=== PATIENT | male | born 1930 | race Caucasian/White ===

== ENCOUNTER 2018-07-13 17:31 | Inpatient (IN) ==
[2018-07-13] MEDS ORDERED: Bisacodyl 10 MG Supp RECTAL PRN (22:22)
[2018-07-13] MEDS ORDERED: Acetaminophen 325 MG Tablet PO PRN (22:22)
[2018-07-13] MEDS ORDERED: Heparin 10,000 UNITS/10 ML Vial (for IV use) IV.PUSH STA (22:31)
[2018-07-13] MEDS ORDERED: Dextrose 50% in Water 50 ML Vial IV.PUSH PRN (23:12)
--- NOTE | 2018-07-13 23:32 | P.HPIM ---
History of Present Illness Service: [facility] hospitalists . Primary Care Physician: shiva Box Chief Complaint: Shortness of breath History of Present Illness: Mr. Ward is an 87-year-old male with a history of AAA, atrial fibrillation on Xarelto, type 2 diabetes mellitus, hyperlipidemia, hypertension, and peripheral arterial disease who presented to the emergency room in [place] on 07/13/2018 complaining of progressively worsening shortness of breath. He was found to have left lower lobe pulmonary embolism, bilateral pleural effusions and bibasilar consolidation, and right middle lobe and lingula infiltrate on imaging and was transferred to [facility] under the hospitalist service for further evaluation and management. The patient is seen in his hospital room. He is awake, alert, oriented, conversant, and smiling. He states that he has been having problems with shortness of breath over the past month. He received treatment through his primary care physician with oral steroids and an inhaler. He says symptoms improved with the steroids and he never needed the inhaler. However, 2 days ago he began to experience shortness of breath again. He states his symptoms were worse when he attempted to lie down and were relieved initially with the inhaler he had received the previous month. Because of the difficulty he was having breathing during the night, he decided to go to the emergency room today. He also reports having dizziness over the past year for which he attends physical therapy for balance. He states the dizziness was never worked up with any imaging but has resulted in him using a cane for ambulation at times. He denies having any chest pain, shortness of breath, or unilateral weakness. He denies any recent fever or chills. Inpatient Certification: I certify that the inpatient services were ordered in accordance with Medicare regulations governing the order. This includes certification that hospital inpatient services are reasonable and necessary and in the case of services not specified as inpatient-only under 42 CFR 419.22(n), that they are appropriately provided as inpatient services in accordance to with the 2-midnight benchmark under 43 CFR 412.3(e) Estimated Total Length of Stay (Days): 4 Plans for Post Hospital Care: Not yet determined Review of Systems All other systems reviewed negative except as stated in HPI [facility] - History History Provided By: Patient - Medical History Medical History: Medical History (Last Updated 07/14/18 @ 00:38 by JAZMYNE Mckoy) BPH (benign prostatic hyperplasia) Aortic aneurysm, abdominal Atrial fibrillation Diabetes High cholesterol Hypertension Peripheral artery disease - Surgical History Surgical History: Surgical History (Last Updated 07/14/18 @ 00:38 by JAZMYNE Mckoy) Hernia Onset Date: ~2009 History of colon resection Onset Date: ~2016 Hx of appendectomy Onset Date: ~2017 - Family History Family History: Family History (Last Updated 07/14/18 @ 00:36 by JAZMYNE Mckoy) Father CVA (cerebral vascular accident) Brother CVA (cerebral vascular accident) Brother CVA (cerebral vascular accident) - Tobacco History Second Hand Smoke Exposure: No Smoking Status: Never smoker - Alcohol History How Often Do You Have a Drink Containing Alcohol: Monthly or less - Substance Use History Substance History: No History of Abuse Medications and Allergies Active Medications: Active Medications Acetaminophen (Tylenol) 650 mg PO Q4H PRN PRN Reason: Temp > 100.4 Albuterol (Duoneb Neb (Onur)) 1 ampul NEB Q6HR NEB ONUR Albuterol (Duoneb Neb (Prn)) 1 ampul NEB Q4HR NEB PRN PRN Reason: SHORTNESS OF BREATH/WHEEZING Bisacodyl (Dulcolax Supp) 10 mg RECTAL DAILY PRN PRN Reason: SEVERE CONSITIPATION Dextrose (D50w Vial) 50 ml IV.PUSH UNSCH PRN PRN Reason: PER HYPOGLYCEMIA PROTOCOL Furosemide (Lasix Inj) 40 mg IV.PUSH BID@0900,1800 ONUR Glucagon (Glucagon Inj) 1 mg OTHER PRN PRN PRN Reason: for Hypoglycemia Protocol Heparin Sodium/Dextrose (Heparin/D5w 25,000 U/250 Ml) 25,000 unit in 250 mls @ 12 mls/hr IV.CONT TITRATE PRN; Protocol PRN Reason: Per Protocol Azithromycin 500 mg/ Sodium (Chloride) 250 mls @ 250 mls/hr IV.SIG Q24H ONUR Ceftriaxone Sodium 1,000 mg/ (Sodium Chloride) 100 mls @ 200 mls/hr IV.SIG Q24H ONUR Insulin Aspart (Novolog Insulin Correctional Sugar Inj) 0 unit SQ ACHS ONUR; Protocol Sennosides (Senokot) 17.2 mg PO Q12H PRN PRN Reason: Moderate Constipation Sodium Chloride (Ns Flush) 2 ml IV.FLUSH BID ONUR Sodium Chloride (Ns Flush) 2 ml IV.FLUSH PRN PRN PRN Reason: FLUSH AFTER USING IV ACCESS Allergies Allergy/AdvReac Type Severity Reaction Status Date / Time No Known Allergies Allergy Verified 07/13/18 17:45 Home Medications Medication Instructions Recorded Confirmed Type albuterol sulfate [Ventolin HFA] 2 puff INHALATION Q4-6H PRN 07/13/18 07/13/18 History atenolol [Tenormin] 25 mg PO DAILY 07/13/18 07/13/18 History furosemide [Lasix] 20 mg PO DAILY 07/13/18 07/13/18 History glyburide 2.5 mg PO DAILY 07/13/18 07/13/18 History levothyroxine 50 mcg PO DAILY 07/13/18 07/13/18 History losartan 50 mg PO DAILY 07/13/18 07/13/18 History metformin [Glucophage] 500 mg PO BID 07/13/18 07/13/18 History potassium chloride 10 meq PO BID 07/13/18 07/13/18 History rivaroxaban [Xarelto] 15 mg PO DAILY 07/13/18 07/13/18 History simvastatin 20 mg PO QPM 07/13/18 07/13/18 History tamsulosin [Flomax] 0.4 mg PO DAILY 07/13/18 07/13/18 History Exam Vital signs: Intake & Output 07/13/18 07/13/18 07/14/18 06:59 18:59 06:59 Weight 63.8 kg Other: Weight On Admission 63.8 kg Narrative: GENERAL: This is a well-nourished, well-developed elderly male patient, in no apparent distress. Lying in bed smiling; very pleasant. SKIN: No rashes. Cool and dry. Multiple areas of ecchymosis on upper extremities in various stages of healing. Skin changes LE r/t PVD. HEAD: Atraumatic. Normocephalic. EYES: No scleral icterus. No injection or drainage. ENT: Nose without bleeding, purulent drainage. NECK: Trachea midline. No JVD. No carotid bruits. CARDIOVASCULAR: Irregularly irregular without murmurs or rubs. Left > right LE + 1 pitting edema. RESPIRATORY: Breath sounds diminished at bases but equal bilaterally. No wheezes , rales, or rhonchi. GASTROINTESTINAL: Abdomen soft, non-tender, nondistended. No guarding. MUSCULOSKELETAL: Extremities without clubbing, cyanosis. NEUROLOGICAL: Awake and alert. Motor and sensory grossly within normal limits. Normal speech. . Results - Labs CBC & Chem 7: 07/14/18 00:21 Caprini VTE Risk Assessment Caprini VTE Risk Assessment: Moderate/High Risk (score >= 2) Caprini Risk Assessment Model: Point Value = 1 Point Value = 2 Point Value = 3 Point Value = 5 Age 41-60 Minor surgery BMI > 25 kg/m2 Swollen legs Varicose veins or History of unexplained or recurrent spontaneous Oral contraceptives or hormone replacement Sepsis (< 1 month) Serious lung disease, including pneumonia (< 1 month) Abnormal pulmonary function Acute myocardial infarction Congestive heart failure (< 1 month) History of inflammatory bowel disease Medical patient at bed rest Age 61-74 Arthroscopic surgery Major open surgery (> 45 min) Laparoscopic surgery (> 45 min) Malignancy Confined to bed (> 72 hours) Immobilizing plaster cast Central venous access Age >= 75 History of VTE Family history of VTE Factor V Leiden Prothrombin [id number] Lupus anticoagulant Anticardiolipin antibodies Elevated serum homocysteine Heparin-induced thrombocytopenia Other congenital or acquired thrombophilia Stroke (< 1 month) Elective arthroplasty Hip, pelvis, or leg fracture Acute spinal cord injury (< 1 month) Prophylaxis Regimen: Total Risk Factor Score Risk Level Prophylaxis Regimen 0-1 Low Early ambulation 2 Moderate Order ONE of the following: *Sequential Compression Device (SCD) *Heparin 5000 units SQ BID 3-4 Higher Order ONE of the following medications: *Heparin 5000 units SQ TID *Enoxaparin/Lovenox 40 mg SQ daily (WT < 150 kg, CrCl > 30 mL/min) *Enoxaparin/Lovenox 30 mg SQ daily (WT < 150 kg, CrCl > 10-29 mL/min) *Enoxaparin/Lovenox 30 mg SQ BID (WT < 150 kg, CrCl > 30 mL/min) AND/OR *Sequential Compression Device (SCD) 5 or more Highest Order ONE of the following medications: *Heparin 5000 units SQ TID (Preferred with Epidurals) *Enoxaparin/Lovenox 40 mg SQ daily (WT < 150 kg, CrCl > 30 mL/min) *Enoxaparin/Lovenox 30 mg SQ daily (WT < 150 kg, CrCl > 10-29 mL/min) *Enoxaparin/Lovenox 30 mg SQ BID (WT < 150 kg, CrCl > 30 mL/min) AND *Sequential Compression Device (SCD) Assessment and Plan - Plan Mr. Ward is an 87-year-old male with a history of AAA, atrial fibrillation on Xarelto, type 2 diabetes mellitus, hyperlipidemia, hypertension, and peripheral arterial disease who presented to the emergency room in [place] on 07/13/2018 complaining of progressively worsening shortness of breath. He was found to have left lower lobe pulmonary embolism, bilateral pleural effusions and bibasilar consolidation, and right middle lobe and lingula infiltrate on imaging and was transferred to [facility] under the hospitalist service for further evaluation and management. Pulmonary embolism, left lower lobe -Chest CTA performed in [place] showed pulmonary embolus within the left lower lobe artery branches -Heparin drip -Consider hematology consultation for assistance with anticoagulation selection as patient was on Xarelto for atrial fibrillation -Bilateral LE doppler us to evaluate for DVT (left > right LE edema) Congestive heart failure -Bilateral pleural effusions noted on chest CTA -BNP 2890 -Check 2D echocardiogram to evaluate cardiac function and structure -Lasix 40 mg IV twice daily; hold home Lasix dose for now -Recommend fluid restriction once diet restarted -Monitor intake and output every shift Troponin I elevation -Suspect secondary to CHF -will trend cardiac enzymes and EKGs to rule out ACS -N.p.o. for now -Consult cardiology -appreciate assistance -Continuous cardiac telemetry to monitor for arrhythmia Pneumonia, right middle lobe and lingula -Chest CT shows atelectasis versus infiltrate right middle lobe and lingula -Patient is afebrile and white blood count is not elevated; however, will treat empirically for now -Antibiotics: IV ceftriaxone and azithromycin -Duo nebulizers every 6 hours scheduled and every 4 hours as needed shortness of breath/wheezing -Supplemental oxygen via nasal cannula as needed to maintain oxygen saturation greater than 92% Dizziness, chronic 1 year -Patient may benefit from brain MRI/neurological evaluation as an outpatient Type 2 Diabetes Mellitus -Hold metformin pending possible contrast studies, hold home glyburide while n.p.o. - Accu-Cheks before meals and at bedtime with low-dose NovoLog sliding scale coverage - Hypoglycemia protocol - Monitor trends and blood glucose readings and adjust treatments as indicated Hypothyroidism -Resume home Synthroid Hypertension -Resume home losartan and atenolol Hyperlipidemia -Resume home simvastatin BPH -Resume home Flomax DVT prophylaxis -On heparin drip for now Discussed Condition With: Dr. Benites, RN, and patient H&P: Quality - VTE Deep Vein Thrombosis/Pulmonary Embolism Present on Admission: Yes
[2018-07-13] MEDS: Azithromycin Inj 500 MG in Sodium Chlor 0.9% Inj 250 ML IV.SIG SCH (23:33)
[2018-07-13] MEDS: Heparin Drip 25,000 UNIT/250 ML BAG IV.CONT PRN (23:34)
[2018-07-14 00:31] LABS: Hematocrit 36.8 % (39.0-51.0); Mean Corpuscular HGB Conc 32.6 % (32.0-36.0); Mean Corpuscular Hemoglobin 29.5 pg (27.0-34.0); Mean Corpuscular Volume 90.6 fL (80.0-100.0); Mean Platelet Volume 10.2 fL (7.0-11.0); Platelet Count 116 th/mm3 (150-450); Red Blood Count 4.06 mil/mm3 (4.50-5.90); Red Cell Distribution Width 16.6 % (11.6-17.2); White Blood Count 7.7 th/mm3 (4.0-11.0)
[2018-07-14 00:41] LABS: Activated Partial Thrombo Time 31.7 sec (24.3-30.1); INR 1.2 Ratio; Prothrombin Time 12.5 sec (9.8-11.6)
[2018-07-14 00:57] LABS: Troponin I 0.32 ng/mL (0.02-0.05)
[2018-07-14 04:57] LABS: Baso % (Auto) 0.2 % (0.0-2.0); Eos % (Auto) 0.1 % (0.0-4.0); Hematocrit 35.3 % (39.0-51.0); Hemoglobin 11.8 gm/dL (13.0-17.0); Lymph # (Auto) 0.7 th/mm3 (1.0-4.8); Lymph % (Auto) 8.8 % (9.0-44.0); Mean Corpuscular HGB Conc 33.4 % (32.0-36.0); Mean Corpuscular Hemoglobin 30.1 pg (27.0-34.0); Mean Corpuscular Volume 90.1 fL (80.0-100.0); Mono # (Auto) 0.7 th/mm3 (0.0-0.9); Mono % (Auto) 8.6 % (0.0-8.0); Neut # (Auto) 6.3 th/mm3 (1.8-7.7); Neut % (Auto) 82.3 % (16.0-70.0); Platelet Count 119 th/mm3 (150-450); Red Blood Count 3.91 mil/mm3 (4.50-5.90); Red Cell Distribution Width 16.4 % (11.6-17.2); White Blood Count 7.7 th/mm3 (4.0-11.0)
[2018-07-14 05:33] LABS: Alanine Aminotransferase 38 U/L (12-78); Albumin 3.5 g/dL (3.4-5.0); Anion Gap 9 meq/L (5-15); Aspartate Aminotransferase 27 U/L (15-37); Blood Urea Nitrogen 37 mg/dL (7-18); Calcium 8.9 mg/dL (8.5-10.1); Carbon Dioxide 30.1 meq/L (21.0-32.0); Chloride 105 meq/L (98-107); Glomerular Filtration Rate 50 mL/min (>89); Glucose,Random 138 mg/dL (74-106); Potassium 3.4 meq/L (3.5-5.1); Sodium 144 meq/L (136-145)
[2018-07-14 05:37] LABS: Alkaline Phosphatase 70 U/L (45-117); Total Protein 7.1 g/dL (6.4-8.2); Troponin I 0.32 ng/mL (0.02-0.05)
[2018-07-14 05:47] LABS: Creatine Kinase 42 U/L (39-308)
[2018-07-14] MEDS: Levothyroxine 50 MCG Tablet PO SCH (06:19)
--- NOTE | 2018-07-14 09:19 | US ---
EXAM DATE: 07/14/2018 9:10 AM EDT AGE/SEX: 87 years / Male INDICATIONS: Bilateral leg swelling. CLINICAL DATA: This is the patient's initial encounter. Patient reports that signs and symptoms have been present for 4 - 6 days and indicates a pain score of 4/10. MEDICAL/SURGICAL HISTORY: Aneurysm, abdominal. Hypercholesterolemia. Afib. BPH. Diabetes. HTN. Peripheral artery disease. Anticoagulant therapy, Heparin. Appendectomy. Bilateral inguinal hernia repair. Colon resection. COMPARISON: No prior exams available for comparison. TECHNIQUE: Venous ultrasound of both lower extremities was performed from the inguinal ligament to t he proximal calf. Real-time, color Doppler and spectral tracing, compression and augmentation techni ques were used. FINDINGS: Right Leg: Normal compression of the deep venous system from the inguinal region to the proximal donald f. No echogenic clot is seen. Normal response of the venous system to augmentation and respiration. Left Leg: Normal compression of the deep venous system from the inguinal region to the proximal calf . No echogenic clot is seen. Normal response of the venous system to augmentation and respiration. Other: 3 cm popliteal cyst on the left. CONCLUSION: 1. Negative for deep venous thrombosis 2. 3 cm popliteal cyst the left. Electronically signed by: Jonathan Peace MD 07/14/2018 9:17 AM EDT
[2018-07-14] MEDS: Atenolol 25 MG Tablet PO SCH (10:14)
[2018-07-14] MEDS: Insulin NovoLOG Aspart Correctional Sugar Inj SQ SCH ×4 (10:14→21:26)
--- NOTE | 2018-07-14 11:59 | P.PN ---
Subjective Interval history: Deterioration since last night. Patient himself reports no chest pain, reports mild dyspnea. Says he lives alone, says his daughter checks on him semiweekly. Renal function seems to worsen today, on IV diuresis. Physical Exam Vital signs: Vital Signs 07/13/18 23:00 07/14/18 00:00 07/14/18 01:00 Temperature 98 F Pulse Rate 91 H 88 70 Respiratory Rate 16 Blood Pressure 164/97 H Pulse Oximetry 97 07/14/18 02:00 07/14/18 03:00 07/14/18 03:09 Temperature Pulse Rate 76 86 90 Respiratory Rate 16 Blood Pressure 158/88 H Pulse Oximetry 95 07/14/18 03:56 07/14/18 04:00 07/14/18 05:00 Temperature Pulse Rate 83 78 86 Respiratory Rate 20 Blood Pressure Pulse Oximetry 93 L 07/14/18 06:00 07/14/18 07:00 07/14/18 08:00 Temperature 97.8 F Pulse Rate 94 H 72 67 Respiratory Rate 16 Blood Pressure 94/57 L Pulse Oximetry 94 L 07/14/18 09:18 07/14/18 10:16 07/14/18 11:35 Temperature 97.4 F L Pulse Rate 77 74 Respiratory Rate 18 16 Blood Pressure 173/98 H Pulse Oximetry 96 97 Intake & Output 07/13/18 07/14/18 07/14/18 18:59 06:59 18:59 Intake Total 350 / 350 Output Total 300 / 300 Balance 50 / 50 Weight 63.8 kg Intake: IV 350 / 350 Azithromycin Inj 500 MG In NS 250 / 250 Inj 250 ML @ 250 mls/hr IV.SIG Q24H RITO Rx#:[id number] Rocephin Inj 1,000 MG In NS Inj 100 / 100 100 ML @ 200 mls/hr IV.SIG Q24H RITO Rx#:[id number] Output: Urine 300 / 300 Other: Date of Last Bowel Movement 07/11/18 Weight On Admission 63.8 kg Narrative: Heart sounds regular rate rhythm, no murmurs Clear lungs bilaterally, unlabored breathing Mild to moderate bilateral lower extremity edema Results - Labs CBC & Chem 7: 07/14/18 04:46 07/14/18 04:46 Laboratory Results - last 24 hr 07/14/18 07/14/18 07/14/18 00:21 00:21 00:21 WBC 7.7 RBC 4.06 L Hgb 12.0 L Hct 36.8 L MCV 90.6 MCH 29.5 MCHC 32.6 RDW 16.6 Plt Count 116 L MPV 10.2 Neut % (Auto) Lymph % (Auto) Hickman % (Auto) Eos % (Auto) Baso % (Auto) Neut # (Auto) Lymph # (Auto) Hickman # (Auto) Eos # (Auto) Baso # (Auto) WBC Differential Differential Comment PT 12.5 H INR 1.2 APTT 31.7 H Sodium Potassium Chloride Carbon Dioxide Anion Gap BUN Creatinine Estimated GFR POC Glucose Random Glucose Calcium Total Bilirubin AST ALT Alkaline Phosphatase Total Creatine Kinase 50 Troponin I 0.32 H Total Protein Albumin 07/14/18 07/14/18 07/14/18 04:46 04:46 04:46 WBC 7.7 RBC 3.91 L Hgb 11.8 L Hct 35.3 L MCV 90.1 MCH 30.1 MCHC 33.4 RDW 16.4 Plt Count 119 L MPV 10.0 Neut % (Auto) 82.3 H Lymph % (Auto) 8.8 L Hickman % (Auto) 8.6 H Eos % (Auto) 0.1 Baso % (Auto) 0.2 Neut # (Auto) 6.3 Lymph # (Auto) 0.7 L Hickman # (Auto) 0.7 Eos # (Auto) 0.0 Baso # (Auto) 0.0 WBC Differential . Differential Comment Auto diff final PT INR APTT 53.3 H D Sodium 144 Potassium 3.4 L Chloride 105 Carbon Dioxide 30.1 Anion Gap 9 BUN 37 H Creatinine 1.36 H Estimated GFR 50 L POC Glucose Random Glucose 138 H Calcium 8.9 Total Bilirubin 0.9 AST 27 ALT 38 Alkaline Phosphatase 70 Total Creatine Kinase 42 Troponin I 0.32 H Total Protein 7.1 Albumin 3.5 07/14/18 07/14/18 07:53 11:41 WBC RBC Hgb Hct MCV MCH MCHC RDW Plt Count MPV Neut % (Auto) Lymph % (Auto) Hickman % (Auto) Eos % (Auto) Baso % (Auto) Neut # (Auto) Lymph # (Auto) Hickman # (Auto) Eos # (Auto) Baso # (Auto) WBC Differential Differential Comment PT INR APTT Sodium Potassium Chloride Carbon Dioxide Anion Gap BUN Creatinine Estimated GFR POC Glucose 135 H 162 H Random Glucose Calcium Total Bilirubin AST ALT Alkaline Phosphatase Total Creatine Kinase Troponin I Total Protein Albumin - Imaging Impressions Venous Doppler Study 07/14/18 00:00 CONCLUSION: 1. Negative for deep venous thrombosis 2. 3 cm popliteal cyst the left. Assessment and Plan - Plan Mr. Ward is an 87-year-old male with a history of AAA, atrial fibrillation on Xarelto, type 2 diabetes mellitus, hyperlipidemia, hypertension, and peripheral arterial disease who presented to the emergency room in [place] on 07/13/2018 complaining of progressively worsening shortness of breath. He was found to have left lower lobe pulmonary embolism, bilateral pleural effusions and bibasilar consolidation, and right middle lobe and lingula infiltrate on imaging and was transferred to [facility] under the hospitalist service for further evaluation and management. Pulmonary embolism, left lower lobe -Heparin drip -Negative lower extremity ultrasound Bilateral pleural effusions Likely from congestive heart failure given bilateral nature, unable to drain due to being on anticoagulation unfortunately, likely will remain as residual since the patient is already on Lasix Troponin I elevation -PE vs CHF vs possible ACS, cards consulted Congestive heart failure -echo pending -Lasix 40 mg IV twice daily; hold home Lasix dose for now -Recommend fluid restriction once diet restarted possible PNA -Antibiotics: IV ceftriaxone and azithromycin, if procalcitonin negative will dc abx Dizziness, chronic 1 year -Patient may benefit from brain MRI/neurological evaluation as an outpatient Type 2 Diabetes Mellitus - Accu-Cheks before meals and at bedtime with low-dose NovoLog sliding scale coverage Hypothyroidism - home Synthroid Hypertension -home losartan and atenolol Hyperlipidemia -home simvastatin BPH - home Flomax DVT prophylaxis -On heparin drip for now
--- NOTE | 2018-07-14 12:16 | ECG ---
Date Performed: 07/14/2018 Time Performed: 01:43:24 PTAGE: 87 years EKG: Atrial fibrillation with PVC(s) Prolonged QT interval LVH with secondary repolarization abn ormality Extensive ST-T changes may be due to hypertrophy and/or ischemia Low QRS voltages in limb le ads OCCASIONAL PVCS PRESENT Abnormal ECG PREVIOUS TRACING 07/13/2018 @18.17.23 DOCTOR: William Beatty Interpretating Date/Time 07/14/2018 12:15:53
--- NOTE | 2018-07-14 12:22 | ECG ---
Date Performed: 07/14/2018 Time Performed: 06:53:34 PTAGE: 87 years EKG: Atrial fibrillation with PVC(s) or aberrant ventricular conduction Prolonged QT interval Po ssible anterior infarct - age undetermined Inferior/lateral ST-T changes may be due to myocardial isc hemia Abnormal ECG PREVIOUS TRACING : 07/14/2018 01.43 Since the previous tracing, no significant change noted ex cept for anterolateral ischemic changed are more prominent DOCTOR: William Beatty Interpretating Date/Time 07/14/2018 12:21:02
[2018-07-14] MEDS: Heparin Drip 25,000 UNIT/250 ML BAG IV.CONT PRN (19:07)
--- NOTE | 2018-07-14 20:00 | MB ---
cc: Neno Latham DO DATE: 07/14/2018 REASON FOR CONSULTATION: Shortness of breath, congestive heart failure. HISTORY OF PRESENT ILLNESS: Maximus Ward is a pleasant 87-year-old male who presented to [facility] Emergency Room in [place] due to shortness of breath. 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 He has noted that he has had progressive shortness of breath over the past few days. Shortness of breath started around 1 month ago and he has been receiving treatments through his primary care physician with oral steroids and an inhaler. His symptoms seemed to improve somewhat on these. He noticed that over the past 2 days that the shortness of breath has gotten extensively worse. He notes that it is worse at night when he lays down and was initially relieved with the inhaler, but yesterday did not seem to get relieved, and so he came into the emergency room. While there, he underwent a CT which showed a left lower lobe pulmonary embolism as well as bilateral pleural effusions. Because of this, he was transferred to [facility] for further evaluation. He denies any chest pain with the episodes. PAST MEDICAL HISTORY: 1. Atrial fibrillation. 2. Benign prostatic hypertrophy. 3. Abdominal aortic aneurysm. 4. Diabetes. 5. Hyperlipidemia. 6. Hypertension. 7. Peripheral artery disease. PAST SURGICAL HISTORY: 1. Hernia surgery (2009). 2. History of colon resection (2017). 3. History of appendectomy (2017). ALLERGIES: NO KNOWN DRUG ALLERGIES. MEDICATIONS: 1. Potassium 10 mEq b.i.d. 2. Flomax 0.4 mg daily. 3. Metformin 500 mg b.i.d. 4. Lasix 20 mg daily. 5. Synthroid 50 mcg daily. 6. Xarelto 15 mg daily. 7. Glyburide 2.5 mg daily. 8. Atenolol 25 mg daily. 9. Albuterol 2 puffs every 4-6 hours as needed. 10. Losartan 50 mg daily. 11. Zocor 20 mg every night. FAMILY HISTORY: Denies premature coronary artery disease or sudden cardiac within the family. SOCIAL HISTORY: The patient denies tobacco, alcohol or drug abuse. REVIEW OF SYSTEMS: Fourteen systems were reviewed including osteopathic. Pertinent positives and negatives above, otherwise negative. PHYSICAL EXAMINATION: VITAL SIGNS: Temperature 97.4, heart rate 74, blood pressure 170/90, respirations 16, pulse oximetry 97% on room air. GENERAL: The patient appears well, in no acute distress, alert, awake and oriented x3. HEENT: Extraocular muscles intact. Mucous membranes moist. NECK: Supple. No JVD at 45 degrees. No carotid bruits heard bilaterally. Carotid upstroke is brisk in nature. HEART: Regular rate and rhythm. Positive first and second heart sounds with a 1/6 crescendo decrescendo murmur to the right sternal border. LUNGS: Decreased breath sounds bilaterally, but no overt wheezes, rales or rhonchi. ABDOMEN: Soft, nontender, nondistended. No organomegaly noted. EXTREMITIES: Show no clubbing, cyanosis or edema. Femoral and distal pulses intact bilaterally. NEUROLOGIC: No focal deficits. SKIN: Warm, dry and intact. OSTEOPATHIC: No kyphoscoliosis, lordosis or paraspinal tender points. LABORATORY DATA: Hemoglobin 12.0, hematocrit 36.8, platelets 116. Potassium 3.4, BUN 37, creatinine 1.36, troponin 0.32. Electrocardiogram (07/14/2018 at 0143): Atrial fibrillation with PVCs versus aberrantly conducted beats, LVH with secondary ST-T wave changes. IMPRESSION: 1. Elevated troponin. 2. Bilateral pleural effusions. 3. Acute heart failure, unsure if diastolic versus systolic at this time. 4. Pulmonary embolus within the left lower lobe. 5. Atrial fibrillation with controlled ventricular response, currently on Xarelto for anticoagulation. 6. Elevated troponin. 7. Hypertension. 8. Hyperlipidemia. RECOMMENDATIONS: 1. Mr. Ward presented with shortness of breath, which may be due to acute congestive heart failure with bilateral pleural effusions as well as his left lower lobe pulmonary embolus. 2. I agree with hematology evaluating him due to a pulmonary embolus while on anticoagulation with Xarelto. 3. He does have a minimally elevated troponin, but this is relatively flat and is most likely secondary to his pulmonary embolus as well as his current congestive heart failure. 4. We will check a 2D echo to look at his overall left ventricular function, cardiac structure and possible valvulopathies. 5. Mr. Ward states that he had a stress test some time in the last year, which he was told was normal. 6. We will continue to diurese him as possible for his bilateral pleural effusions and congestive heart failure. 7. For now, he will continue on his atenolol, but if significant cardiomyopathy is noted, this should be changed to possibly carvedilol versus metoprolol succinate. 8. He will also continue on his losartan, but if creatinine continues to elevate, this will be stopped while being diuresed. 9. His atrial fibrillation is controlled at this time. 10. Further recommendations will be made based on the hospital course. Thank you for allowing me to see Maximus Ward. If there are any questions, please do not hesitate to call. Neno Latham, DO VIDAL/brandi/rl , 03:27 PM , 03:39 PM
[2018-07-14] MEDS: Azithromycin Inj 500 MG in Sodium Chlor 0.9% Inj 250 ML IV.SIG SCH (23:26)
[2018-07-15] MEDS: Levothyroxine 50 MCG Tablet PO SCH (05:24)
[2018-07-15 06:44] LABS: Hematocrit 35.5 % (39.0-51.0); Hemoglobin 11.6 gm/dL (13.0-17.0); Mean Corpuscular HGB Conc 32.8 % (32.0-36.0); Mean Corpuscular Hemoglobin 29.7 pg (27.0-34.0); Mean Corpuscular Volume 90.5 fL (80.0-100.0); Mean Platelet Volume 10.9 fL (7.0-11.0); Platelet Count 115 th/mm3 (150-450); Red Blood Count 3.92 mil/mm3 (4.50-5.90); Red Cell Distribution Width 16.3 % (11.6-17.2); White Blood Count 11.2 th/mm3 (4.0-11.0)
[2018-07-15 07:34] LABS: Calcium 9.2 mg/dL (8.5-10.1); Potassium 3.2 meq/L (3.5-5.1)
[2018-07-15] MEDS: Atenolol 25 MG Tablet PO SCH (08:14)
[2018-07-15] MEDS: Insulin NovoLOG Aspart Correctional Sugar Inj SQ SCH ×4 (08:17→21:11)
--- NOTE | 2018-07-15 14:00 | P.PN ---
Subjective Interval history: Nursing denies any deterioration since last night. Patient himself has no chest pain no shortness of breath today. Says he is pretty compliant with his Xarelto at home for his A. fib. Physical Exam Vital signs: Vital Signs 07/14/18 14:00 07/14/18 15:00 07/14/18 15:38 Temperature 97.4 F L Pulse Rate 72 77 72 Respiratory Rate 18 Blood Pressure 176/97 H Pulse Oximetry 97 07/14/18 15:59 07/14/18 16:00 07/14/18 17:00 Temperature Pulse Rate 69 64 90 Respiratory Rate 17 Blood Pressure Pulse Oximetry 07/14/18 18:00 07/14/18 19:00 07/14/18 20:00 Temperature 97 F L Pulse Rate 74 80 84 Respiratory Rate 18 Blood Pressure 160/84 H Pulse Oximetry 99 07/14/18 20:33 07/14/18 20:34 07/14/18 21:00 Temperature Pulse Rate 75 72 Respiratory Rate 18 Blood Pressure Pulse Oximetry 92 L 07/14/18 22:00 07/14/18 23:00 07/15/18 00:00 Temperature Pulse Rate 82 76 80 Respiratory Rate 16 Blood Pressure 156/88 H Pulse Oximetry 97 07/15/18 01:00 07/15/18 02:00 07/15/18 03:00 Temperature Pulse Rate 84 84 89 Respiratory Rate Blood Pressure Pulse Oximetry 07/15/18 04:00 07/15/18 04:09 07/15/18 05:00 Temperature Pulse Rate 90 72 108 H Respiratory Rate 16 16 Blood Pressure 160/89 H Pulse Oximetry 93 L 07/15/18 06:00 07/15/18 07:00 07/15/18 08:00 Temperature 98.3 F Pulse Rate 102 H 106 H 92 H Respiratory Rate 18 Blood Pressure 152/99 H Pulse Oximetry 96 07/15/18 09:00 07/15/18 09:10 07/15/18 10:00 Temperature Pulse Rate 90 91 H 90 Respiratory Rate 18 Blood Pressure Pulse Oximetry 96 07/15/18 11:00 07/15/18 12:00 Temperature 98.0 F Pulse Rate 88 103 H Respiratory Rate 18 Blood Pressure 154/97 H Pulse Oximetry 94 L Intake & Output 09/23/18 09/24/18 09/24/18 18:59 06:59 18:59 Intake Total 1100 / 1100 840 / 840 Output Total 350 / 350 Balance 1100 / 1100 490 / 490 Weight 64.2 kg Intake: IV 600 / 600 Heparin/D5W 25,000 U/250 mL 25, 250 / 250 000 unit In 250 ml @ 1,200 UNITS/HR 12 mls/hr IV.CONT TITRATE PRN Rx#:[id number] Azithromycin Inj 500 MG In NS 250 / 250 Inj 250 ML @ 250 mls/hr IV.SIG Q24H RITO Rx#:[id number] Rocephin Inj 1,000 MG In NS Inj 100 / 100 100 ML @ 200 mls/hr IV.SIG Q24H RITO Rx#:[id number] Oral 1100 / 1100 240 / 240 Output: Urine 350 / 350 Other: # Incontinent Voids 5 Date of Last Bowel Movement 07/14/18 07/14/18 07/14/18 # Bowel Movements 2 0 Narrative: Clear lungs bilaterally anteriorly, unlabored breathing Currently getting echocardiogram as we speak Heart sounds regular rate rhythm Results - Labs CBC & Chem 7: 07/15/18 05:38 07/15/18 05:38 Laboratory Results - last 24 hr 07/14/18 07/14/18 07/14/18 12:24 12:24 18:02 WBC RBC Hgb Hct MCV MCH MCHC RDW Plt Count MPV APTT 59.7 H Sodium Potassium Chloride Carbon Dioxide Anion Gap BUN Creatinine Estimated GFR POC Glucose 202 H Random Glucose Calcium Procalcitonin 0.12 H 07/14/18 07/15/18 07/15/18 20:47 05:38 05:38 WBC 11.2 H RBC 3.92 L Hgb 11.6 L Hct 35.5 L MCV 90.5 MCH 29.7 MCHC 32.8 RDW 16.3 Plt Count 115 L MPV 10.9 APTT Sodium 142 Potassium 3.2 L Chloride 103 Carbon Dioxide 28.0 Anion Gap 11 BUN 49 H Creatinine 1.85 H Estimated GFR 35 L POC Glucose 196 H Random Glucose 178 H Calcium 9.2 Procalcitonin 07/15/18 07/15/18 07/15/18 05:38 08:11 11:13 WBC RBC Hgb Hct MCV MCH MCHC RDW Plt Count MPV APTT 65.9 H Sodium Potassium Chloride Carbon Dioxide Anion Gap BUN Creatinine Estimated GFR POC Glucose 216 H 207 H Random Glucose Calcium Procalcitonin Microbiology 07/14/18 15:40 Stool Stool Occult Blood (LIZ) - Final Hemoccult negative Assessment and Plan - Plan Mr. Ward is an 87-year-old male with a history of AAA, atrial fibrillation on Xarelto, type 2 diabetes mellitus, hyperlipidemia, hypertension, and peripheral arterial disease who presented to the emergency room in [place] on 07/13/2018 complaining of progressively worsening shortness of breath. He was found to have left lower lobe pulmonary embolism, bilateral pleural effusions and bibasilar consolidation, and right middle lobe and lingula infiltrate on imaging and was transferred to [facility] under the hospitalist service for further evaluation and management. Pulmonary embolism, left lower lobe -Heparin drip -Negative lower extremity ultrasound -Hematology consult pending given embolism while on Xarelto regimen Bilateral pleural effusions Likely from congestive heart failure given bilateral nature, unable to drain due to being on anticoagulation unfortunately, likely will remain as residual since the patient is already on Lasix JOSE Likely secondary to diuresis and heart failure, continue with IV Lasix, if worsening tomorrow then hold Lasix - hold home losartan Troponin I elevation -cards suspect hrt strain from CHF and PE possible PNA -Continue Rocephin and azithromycin, pro calcitonin is elevated Dizziness, chronic 1 year -Patient may benefit from brain MRI/neurological evaluation as an outpatient Type 2 Diabetes Mellitus - Accu-Cheks before meals and at bedtime with low-dose NovoLog sliding scale coverage Hypothyroidism - home Synthroid Hypertension -home losartan and atenolol Hyperlipidemia -home simvastatin BPH - home Flomax DVT prophylaxis -On heparin drip for now Discharge Planning: SNF likely
--- NOTE | 2018-07-15 14:19 | ECHRPT ---
Indication: HEART FAILURE CONCLUSIONS The left ventricular systolic function is severely reduced with an estimated ejection fraction in th e range of 25-30%. Normal LV size and wall thickness. Global hypokinesis with abnormal septal wall motion abnormality secondary to atrial fibrillation. The right ventricular systoilc function is moderately decreased. The left atrial size is vzibtged-na-gyqthtbr dilated. Moderate mitral annular calcification. Vtthohob-qh-jznpwp mitral valve regurgitation. Aortic valve is heavily calcified with some restricted leaflet opening. Mild Aortic stenosis (dimens ionless index 0.55). Yjtl-nj-vkpxlzjk aortic valve regurgitation. There is moderate tricuspid regurgitation. The estimated pulmonary arterial pressure is 62 mmHg. IVC is normal size with >50% collapse with inspiration. A large left sided pleural effusion is noted. No prior echo for comparision. Overall, technically difficult study. BP: / HR: 92 Rhythm: atrial fibrillation MEASUREMENTS (Male / Female) Normal Values Technical Quality:poor 2D ECHO LV Diastolic Diameter PLAX 4.8 cm 4.2 - 5.9 / 3.9 - 5.3 cm LV Systolic Diameter PLAX 4.3 cm IVS Diastolic Thickness 1.1 cm 0.6 - 1.0 / 0.6 - 0.9 cm LVPW Diastolic Thickness 2.8 cm 0.6 - 1.0 / 0.6 - 0.9 cm LV Relative Wall Thickness 0.8 RV Internal Dim ED PLAX 3.1 cm LVOT Diameter 1.6 cm Aortic Root Diameter 3.5 cm LA Systolic Diameter LX 4.1 cm 3.0 - 4.0 / 2.7 - 3.8 cm LV Ejection Fraction MOD 4C 33.3 % LV Ejection Fraction 4C AL 33.5 % M-MODE Aortic Root Diameter MM 4.0 cm LA Systolic Diameter MM 5.0 cm LA Ao Ratio MM 1.3 AV Cusp Separation MM 1.3 cm DOPPLER AV Peak Velocity 160.3 cm/s AV Peak Gradient 10.3 mmHg AV Mean Gradient 4.5 mmHg AV Velocity Time Integral 22.9 cm AI Peak Velocity 200.0 cm/s AI Peak Gradient 16.0 mmHg AI Pressure Half Time 95.0 ms LVOT Peak Velocity 81.2 cm/s LVOT Peak Gradient 2.6 mmHg AV Area Cont Eq pk 1.0 cm Mitral E Point Velocity 98.2 cm/s LV E' Lateral Velocity 6.2 cm/s Mitral E to LV E' Lateral Ratio 15.7 LV E' Septal Velocity 5.8 cm/s Mitral E to LV E' Septal Ratio 17.1 TR Peak Velocity 362.0 cm/s TR Peak Gradient 52.4 mmHg Right Atrial Pressure 10.0 mmHg Pulmonary Artery Systolic Pressu 62.4 mmHg Right Ventricular Systolic Press 62.4 mmHg PV Peak Velocity 88.2 cm/s PV Peak Gradient 3.1 mmHg FINDINGS LEFT VENTRICLE Normal left ventricular size. Wall thickness is normal. The left ventricular systolic function is severely reduced with an estimated ejection fraction in th e range of 25-30%. RIGHT VENTRICLE The right ventricular systoilc function is moderately decreased. LEFT ATRIUM The left atrial size is srgdfxpn-zq-iphtgtiy dilated. RIGHT ATRIUM The right atrial size is normal. ATRIAL SEPTUM Normal atrial septal thickness without atrial level shunting by limited color doppler interrogation. AORTA The aortic root and proximal ascending aorta are normal in size on limited imaging. MITRAL VALVE Moderate mitral annular calcification. Mwjxyonb-ru-witvuk mitral valve regurgitation. AORTIC VALVE Yohq-uy-fncxtvpw aortic valve regurgitation. Diffuse calcification of the aortic valve. TRICUSPID VALVE There is moderate tricuspid regurgitation. The estimated pulmonary arterial pressure is 62 mmHg. PULMONARY VALVE No pulmonary valve regurgitation or stenosis. VESSELS The inferior vena cava is normal in size. PERICARDIUM A large left sided pleural effusion is noted. Kylah Kidd MD (Electronically Signed) Final Date:15 July 2018 14:18
[2018-07-15] MEDS: Heparin Drip 25,000 UNIT/250 ML BAG IV.CONT PRN (16:00)
[2018-07-15] MEDS ORDERED: Furosemide 20 MG Tablet PO SCH (18:00)
[2018-07-15 21:20] LABS: % Iron Saturation 13.8 % (20-50); Iron 47 mcg/dL (65-175); Total Iron Binding Capacity 340 mcg/dL (250-450)
[2018-07-15 21:45] LABS: Ferritin 56 ng/mL (26-388); Vitamin B12 582 pg/mL (193-986)
[2018-07-15] MEDS: Azithromycin Inj 500 MG in Sodium Chlor 0.9% Inj 250 ML IV.SIG SCH (23:07)
--- NOTE | 2018-07-15 23:07 | MB ---
cc: Madeline Mayorga MD DATE: 07/15/2018 CHIEF COMPLAINT: 1. Atrial fibrillation. 2. Chronic anticoagulation with Xarelto. 3. PE. HISTORY OF PRESENT ILLNESS: Mr. Ward is an 87-year-old gentleman with a history of atrial fibrillation, BPH, diabetes, hyperlipidemia, hypertension and peripheral arterial disease, who initially presented to the emergency room in [place] with shortness of breath that had been progressively worsening over the past month leading up to his hospitalization. He had seen his primary pediatric acute care unit nurse and was treated with oral steroids and an inhaler; however, his symptoms overall did not improve. He had a CT scan which showed a left lower lobe pulmonary embolism as well as bilateral pleural effusions and he was subsequently transferred for further evaluation. While here, he was found to have an elevated troponin and he was seen by the cardiology team. He is currently on atenolol and they recommended that he continue this. Repeat echocardiogram obtained with a severely reduced ejection fraction in the range of 25% to 30%, normal left ventricular size and wall thickness, global hypokinesis with abnormal septal wall motion abnormality secondary to atrial fibrillation. Right ventricular function is moderately decreased. Left atrial size is moderately to severely dilated. He is currently on Lasix. His troponin elevation is thought to be due to PE versus congestive heart failure versus ACS. He is also on antibiotics to treat a possible pneumonia. PAST MEDICAL HISTORY: Atrial fibrillation, diabetes, hyperlipidemia, hypertension, peripheral arterial disease. PAST SURGICAL HISTORY: Hernia surgery, colon resection, appendectomy. ALLERGIES: NO KNOWN DRUG ALLERGIES. FAMILY HISTORY: No known family history of blood clots. SOCIAL HISTORY: No tobacco, alcohol or illegal drug use. REVIEW OF SYSTEMS: As above in the HPI. All others negative. HOSPITAL MEDICATIONS: Include: 1. Albuterol. 2. Atenolol. 3. Azithromycin. 4. Ceftriaxone. 5. Lasix. 6. Aspart. 7. Levothyroxine. 8. Losartan. 9. Pravastatin. 10. Compazine. 11. Senna. 12. Tamsulosin. PHYSICAL EXAMINATION: VITAL SIGNS: Temperature 97.9, pulse 88, respiratory rate 18, blood pressure 145/85. GENERAL: Thin, chronically ill-appearing, elderly man in no distress. HEAD: Normocephalic, atraumatic. EYES: PERRLA. EOMI. No scleral icterus. CARDIOVASCULAR: Regular rate and rhythm. No murmurs. RESPIRATORY: Clear to auscultation bilaterally. ABDOMEN: Soft, nontender, nondistended. Bowel sounds present. EXTREMITIES: No edema. NEUROLOGIC: Grossly nonfocal. PSYCHIATRIC: Appropriate mood and affect. ASSESSMENT AND PLAN: 1. Pulmonary embolism while the patient is on anticoagulation with Xarelto for atrial fibrillation. Long discussion with the patient. He reports that he does take Xarelto once a day and he does not miss any doses; however, there is a wide variation in the time that he actually takes his dose. He reports that he takes his dose with food usually around supper time. He reports that he can eat supper time anywhere from around 3-4 in the evening to later to 7-8 in the evening. He does not take this medication at the same time every day. Not taking the medication at the same time every day provided him with a window of time where he was not anticoagulated and this allowed him to obtain a blood clot. VTE is unprovoked. The patient reports that he has been at his baseline state of health with no illnesses, no travel, no prolonged periods of inactivity. He will need to be on anticoagulation for his atrial fibrillation and he can use this to treat the pulmonary embolism. He will need to take this medication at the same time every day and with food. If he is unable to do this, could consider switching to apixaban with twice daily dosing. He would need to take this twice a day at the same time every day. Alternatives would include warfarin. The patient reports he has been on warfarin in the past, but it was difficult to control due to dietary measures. 2. Anemia. The patient with normocytic anemia. He has an elevated creatinine, uncertain of baseline. This could certainly be contributing to his anemia. We will check iron studies. 3. Thrombocytopenia. Platelet count has been between 110,000 to 120,000 during his hospital stay. We will obtain an ultrasound to evaluate liver and spleen. MD PAT Flores/[place] , 07:47 PM , 07:55 PM NORA
[2018-07-16] MEDS: Levothyroxine 50 MCG Tablet PO SCH (05:32)
[2018-07-16] MEDS: Insulin NovoLOG Aspart Correctional Sugar Inj SQ SCH ×4 (08:15→21:25)
--- NOTE | 2018-07-16 09:13 | US ---
EXAM DATE: 07/16/2018 8:52 AM EDT AGE/SEX: 87 years / Male INDICATIONS: Elevated lab values. CLINICAL DATA: This is the patient's initial encounter. Patient reports that signs and symptoms have been present for 1 day and indicates a pain score of 0/10. MEDICAL/SURGICAL HISTORY: . Aneurysm, abdominal. Hypercholesterolemia. Afib. BPH. Diabetes. HTN . Peripheral artery disease. Anticoagulant therapy, Heparin. . Appendectomy. Bilateral inguinal annie ia repair. Colon resection. COMPARISON: . MEASUREMENTS: Liver:__ 14.2 cm. Common Bile Duct:___ 5mm. Right Kidney:___10.4 x 5.1 x 4.9 cm. Left Kidney:___11.1 x 5.3 x 5.5 cm. Spleen:___9.6 cm. FINDINGS: Liver: The echotexture of the liver somewhat heterogeneous. There is no intrahepatic biliary ductal dilation. No mass is identified. Portal Vein: Hepatopedal flow seen in portal vein. Common Duct: No intraluminal mass or stone visualized. Gallbladder: Demonstrates no wall thickening or pericholecystic fluid. No stones visualized. Pancreas: Not well visualized. Right Kidney: The right kidney is somewhat enlarged. The echotexture is heterogeneous. There is cesar ical thinning. There are some punctate scattered subcentimeter cyst within the renal cortex. There is mild prominence of the renal pelvis but no significant hydronephrosis. Left Kidney: The left kidney is enlarged. There is cortical thinning and increased echogenicity. The re is mild prominence of the renal pelvis. There is no significant hydronephrosis. There are some pun ctate simple cysts within the renal cortex. Ascites: There is a small amount of abdominal ascites identified throughout the abdomen. Pleural Effusion: Bilateral Spleen: The spleen appears normal in size. No focal lesion is seen. Aorta: The examination demonstrates minimal aneurysmal dilation of the infrarenal aorta at 3 cm. IVC: Within normal limits Other: None. CONCLUSION: 1. There is a small amount of ascites within the abdomen. 2. Bilateral pleural effusions. 3. Heterogeneous echotexture of the liver without ductal dilation or focal mass. 4. Enlarged, echogenic kidneys bilaterally suggesting underlying medical renal disease. There is mil d cortical thinning bilaterally. 5. 3 cm area of enlargement of the infrarenal abdominal aorta. Electronically signed by: Rosendo Peace MD 07/16/2018 9:11 AM EDT
[2018-07-16] MEDS: Atenolol 25 MG Tablet PO SCH (09:37)
--- NOTE | 2018-07-16 12:36 | P.PNCA ---
Subjective Interval history: No events overnight Breathing better, no chest pain Medications and Allergies Active Medications: Active Medications Acetaminophen (Tylenol) 650 mg PO Q4H PRN PRN Reason: Temp > 100.4 Albuterol (Duoneb Neb (Onur)) 1 ampul NEB Q6HR NEB [facility] Last Admin: 07/16/18 10:42 Dose: 1 ampul Albuterol (Duoneb Neb (Prn)) 1 ampul NEB Q4HR NEB PRN PRN Reason: SHORTNESS OF BREATH/WHEEZING Atenolol (Tenormin) 25 mg PO DAILY [facility] Last Admin: 07/16/18 09:37 Dose: 25 mg Bisacodyl (Dulcolax Supp) 10 mg RECTAL DAILY PRN PRN Reason: SEVERE CONSITIPATION Dextrose (D50w Vial) 50 ml IV.PUSH UNSCH PRN PRN Reason: PER HYPOGLYCEMIA PROTOCOL Furosemide (Lasix Inj) 40 mg IV.PUSH BID@0900,1800 [facility] Last Admin: 07/16/18 09:27 Dose: 40 mg Glucagon (Glucagon Inj) 1 mg OTHER PRN PRN PRN Reason: for Hypoglycemia Protocol Heparin Sodium/Dextrose (Heparin/D5w 25,000 U/250 Ml) 25,000 unit in 250 mls @ 12 mls/hr IV.CONT TITRATE PRN; Protocol PRN Reason: Per Protocol Last Admin: 07/15/18 16:00 Dose: 1,200 units/hr, 12 mls/hr Azithromycin 500 mg/ Sodium (Chloride) 250 mls @ 250 mls/hr IV.SIG Q24H [facility] Last Infusion: 07/16/18 00:53 Dose: Infused Ceftriaxone Sodium 1,000 mg/ (Sodium Chloride) 100 mls @ 200 mls/hr IV.SIG Q24H [facility] Last Infusion: 07/15/18 23:58 Dose: Infused Insulin Aspart (Novolog Insulin Correctional Sugar Inj) 0 unit SQ ACHS [facility]; Protocol Last Admin: 07/16/18 08:15 Dose: Not Given Levothyroxine Sodium (Synthroid) 50 mcg PO DAILY@0600 [facility] Last Admin: 07/16/18 05:32 Dose: 50 mcg Losartan Potassium (Cozaar) 50 mg PO DAILY [facility] Last Admin: 07/15/18 08:14 Dose: 50 mg Potassium Chloride (Klor-Con 10) 10 meq PO BID [facility] Last Admin: 07/16/18 09:25 Dose: 10 meq Pravastatin Sodium (Pravachol) 40 mg PO HS [facility] Last Admin: 07/15/18 21:11 Dose: 40 mg Prochlorperazine Edisylate (Compazine Inj) 5 mg IV.PUSH Q4H PRN PRN Reason: NAUSEA OR VOMITING Last Admin: 07/15/18 01:40 Dose: 5 mg Sennosides (Senokot) 17.2 mg PO Q12H PRN PRN Reason: Moderate Constipation Sodium Chloride (Ns Flush) 2 ml IV.FLUSH BID [facility] Last Admin: 07/16/18 09:28 Dose: 2 ml Sodium Chloride (Ns Flush) 2 ml IV.FLUSH PRN PRN PRN Reason: FLUSH AFTER USING IV ACCESS Tamsulosin HCl (Flomax) 0.4 mg PO DAILY [facility] Last Admin: 07/16/18 09:26 Dose: 0.4 mg Allergies Allergy/AdvReac Type Severity Reaction Status Date / Time No Known Allergies Allergy Verified 07/13/18 17:45 Home Medications Medication Instructions Recorded Confirmed Type albuterol sulfate [Ventolin HFA] 2 puff INHALATION Q4-6H PRN 07/13/18 07/13/18 History atenolol [Tenormin] 25 mg PO DAILY 07/13/18 07/13/18 History furosemide [Lasix] 20 mg PO DAILY 07/13/18 07/13/18 History glyburide 2.5 mg PO DAILY 07/13/18 07/13/18 History levothyroxine 50 mcg PO DAILY 07/13/18 07/13/18 History losartan 50 mg PO DAILY 07/13/18 07/13/18 History metformin [Glucophage] 500 mg PO BID 07/13/18 07/13/18 History potassium chloride 10 meq PO BID 07/13/18 07/13/18 History rivaroxaban [Xarelto] 15 mg PO DAILY 07/13/18 07/13/18 History simvastatin 20 mg PO QPM 07/13/18 07/13/18 History tamsulosin [Flomax] 0.4 mg PO DAILY 07/13/18 07/13/18 History Physical Exam Vital signs: Vital Signs 07/15/18 13:00 07/15/18 14:00 07/15/18 15:00 Temperature Pulse Rate 83 75 83 Respiratory Rate Blood Pressure Pulse Oximetry 07/15/18 16:00 07/15/18 16:42 07/15/18 17:00 Temperature 97.9 F Pulse Rate 93 H 65 86 Respiratory Rate 18 14 Blood Pressure 148/85 H Pulse Oximetry 96 07/15/18 18:00 07/15/18 19:00 07/15/18 20:00 Temperature 97.9 F Pulse Rate 84 84 82 Respiratory Rate 16 Blood Pressure 146/97 H Pulse Oximetry 96 07/15/18 20:55 07/15/18 21:00 07/15/18 22:00 Temperature Pulse Rate 78 86 96 H Respiratory Rate 16 Blood Pressure Pulse Oximetry 93 L 07/15/18 23:00 07/16/18 00:00 07/16/18 01:00 Temperature 97.9 F Pulse Rate 83 83 85 Respiratory Rate 16 Blood Pressure 150/65 H Pulse Oximetry 96 07/16/18 02:00 07/16/18 03:00 07/16/18 04:00 Temperature 98 F Pulse Rate 93 H 85 88 Respiratory Rate 16 Blood Pressure 148/83 H Pulse Oximetry 93 L 07/16/18 05:00 07/16/18 06:00 07/16/18 07:00 Temperature Pulse Rate 87 85 75 Respiratory Rate Blood Pressure Pulse Oximetry 07/16/18 08:00 07/16/18 09:00 07/16/18 10:00 Temperature 75 F L Pulse Rate 75 92 H 97 H Respiratory Rate 16 Blood Pressure 144/80 H Pulse Oximetry 94 L 07/16/18 10:03 07/16/18 10:43 07/16/18 11:00 Temperature Pulse Rate 82 89 Respiratory Rate 18 Blood Pressure Pulse Oximetry 93 L 93 L 07/16/18 12:00 Temperature Pulse Rate 77 Respiratory Rate Blood Pressure Pulse Oximetry Intake & Output 07/15/18 07/16/18 07/16/18 18:59 06:59 18:59 Intake Total 1210 / 1210 590 / 590 Output Total 1500 / 1500 1750 / 1750 Balance -290 / -290 -1160 / -1160 Weight 63.5 kg Intake: IV 250 / 250 350 / 350 Heparin/D5W 25,000 U/250 mL 25, 250 / 250 000 unit In 250 ml @ 1,200 UNITS/HR 12 mls/hr IV.CONT TITRATE PRN Rx#:[id number] Azithromycin Inj 500 MG In NS 250 / 250 Inj 250 ML @ 250 mls/hr IV.SIG Q24H [facility] Rx#:[id number] Rocephin Inj 1,000 MG In NS Inj 100 / 100 100 ML @ 200 mls/hr IV.SIG Q24H [facility] Rx#:[id number] Oral 960 / 960 240 / 240 Output: Urine 1500 / 1500 Urine Amount (Catheter) 1750 / 1750 Straight 1750 / 1750 Other: Date of Last Bowel Movement 07/14/18 07/14/18 # Bowel Movements 0 Narrative: GENERAL: NAD SKIN: Warm and dry. HEAD: Atraumatic. Normocephalic. EYES: Pupils equal and round. No scleral icterus. No injection or drainage. ENT: No nasal bleeding or discharge. Mucous membranes pink and moist. NECK: Trachea midline. No JVD. CARDIOVASCULAR: Regular rate and rhythm. RESPIRATORY: No accessory muscle use. Clear to auscultation. Breath sounds equal bilaterally. GASTROINTESTINAL: Abdomen soft, non-tender, nondistended. Hepatic and splenic margins not palpable. MUSCULOSKELETAL: Extremities without clubbing, cyanosis, or edema. No obvious deformities. NEUROLOGICAL: Awake and alert. No obvious cranial nerve deficits. Motor grossly within normal limits. Five out of 5 muscle strength in the arms and legs. Normal speech. PSYCHIATRIC: Appropriate mood and affect; insight and judgment normal. - Urinary Catheter Management Straight Cath placed during this visit: no Results 07/15/18 05:38 07/15/18 05:38 Coagulation 07/14/18 07/15/18 07/16/18 Range/Units 12:24 05:38 05:21 APTT 59.7 H 65.9 H 60.6 H (24.3-30.1) sec CBC 07/15/18 Range/Units 05:38 WBC 11.2 H (4.0-11.0) th/mm3 RBC 3.92 L (4.50-5.90) mil/mm3 Hgb 11.6 L (13.0-17.0) gm/dL Hct 35.5 L (39.0-51.0) % Plt Count 115 L (150-450) th/mm3 Comprehensive Metabolic Panel 07/15/18 Range/Units 05:38 Sodium 142 (136-145) meq/L Potassium 3.2 L (3.5-5.1) meq/L Chloride 103 (98-107) meq/L Carbon Dioxide 28.0 (21.0-32.0) meq/L BUN 49 H (7-18) mg/dL Creatinine 1.85 H (0.60-1.30) mg/dL Calcium 9.2 (8.5-10.1) mg/dL Intake and Output 07/15/18 07/16/18 07/16/18 22:59 06:59 14:59 Intake Total 1210 / 1210 590 / 590 Output Total 1500 / 1500 1750 / 1750 Balance -290 / -290 -1160 / -1160 Intake: IV 250 / 250 350 / 350 Heparin/D5W 25,000 U/250 mL 25, 250 / 250 000 unit In 250 ml @ 1,200 UNITS/HR 12 mls/hr IV.CONT TITRATE PRN Rx#:[id number] Azithromycin Inj 500 MG In NS 250 / 250 Inj 250 ML @ 250 mls/hr IV.SIG Q24H [facility] Rx#:[id number] Rocephin Inj 1,000 MG In NS Inj 100 / 100 100 ML @ 200 mls/hr IV.SIG Q24H [facility] Rx#:[id number] Oral 960 / 960 240 / 240 Output: Urine 1500 / 1500 Urine Amount (Catheter) 1750 / 1750 Straight 1750 / 1750 Other: Date of Last Bowel Movement 07/14/18 07/14/18 # Bowel Movements 0 Weight 63.5 kg - Imaging and Cardiology Imaging: Impressions Abdomen Ultrasound 07/16/18 00:00 CONCLUSION: 1. There is a small amount of ascites within the abdomen. 2. Bilateral pleural effusions. 3. Heterogeneous echotexture of the liver without ductal dilation or focal mass. 4. Enlarged, echogenic kidneys bilaterally suggesting underlying medical renal disease. There is mild cortical thinning bilaterally. 5. 3 cm area of enlargement of the infrarenal abdominal aorta. Assessment and Plan - Assessment (1) Pulmonary embolism Code(s): I26.99 - Other pulmonary embolism without acute cor pulmonale Status : Acute (2) CHF (congestive heart failure) Code(s): I50.9 - Heart failure, unspecified Status: Acute (3) SOB (shortness of breath) Code(s): R06.02 - Shortness of breath Status: Acute (4) Afib Code(s): I48.91 - Unspecified atrial fibrillation Status: Acute - Plan 1) Acute pulmonary embolism Currently on Xarelto 2) Acute systolic heart failure Bilateral pleural effusions Con't diuresis Unsure if new diagnosis Previous stress nuclear within the past year negative Discussed work up consideration But due to PE, will hold off for now Will follow up outpatient for further considerations 3) Afib Rates controlled Xarelto
[2018-07-16] MEDS: Heparin Drip 25,000 UNIT/250 ML BAG IV.CONT PRN (14:03)
[2018-07-16 14:23] LABS: Calcium 8.4 mg/dL (8.5-10.1); Carbon Dioxide 32.7 meq/L (21.0-32.0); Potassium 3.2 meq/L (3.5-5.1)
--- NOTE | 2018-07-16 15:58 | P.PN ---
Subjective Interval history: Nursing reports patient having difficulty with retention today, required multiple straight catheterizations. Now has a Eastman. Nursing reports that the urine is very dark in color. Daughters at the bedside. Patient himself says he thinks it would be tough for him to adjust to keep his evening dinners at a consistent time on a daily basis so that he can get a consistent timed dose of Xarelto into his system to avoid further VTE expansion or recurrence. Patient denies having chest pain or shortness of breath today while resting in bed. Physical Exam Vital signs: Vital Signs 07/15/18 16:00 07/15/18 16:42 07/15/18 17:00 Temperature 97.9 F Pulse Rate 93 H 65 86 Respiratory Rate 18 14 Blood Pressure 148/85 H Pulse Oximetry 96 07/15/18 18:00 07/15/18 19:00 07/15/18 20:00 Temperature 97.9 F Pulse Rate 84 84 82 Respiratory Rate 16 Blood Pressure 146/97 H Pulse Oximetry 96 07/15/18 20:55 07/15/18 21:00 07/15/18 22:00 Temperature Pulse Rate 78 86 96 H Respiratory Rate 16 Blood Pressure Pulse Oximetry 93 L 07/15/18 23:00 07/16/18 00:00 07/16/18 01:00 Temperature 97.9 F Pulse Rate 83 83 85 Respiratory Rate 16 Blood Pressure 150/65 H Pulse Oximetry 96 07/16/18 02:00 07/16/18 03:00 07/16/18 04:00 Temperature 98 F Pulse Rate 93 H 85 88 Respiratory Rate 16 Blood Pressure 148/83 H Pulse Oximetry 93 L 07/16/18 05:00 07/16/18 06:00 07/16/18 07:00 Temperature Pulse Rate 87 85 75 Respiratory Rate Blood Pressure Pulse Oximetry 07/16/18 08:00 07/16/18 09:00 07/16/18 10:00 Temperature 75 F L Pulse Rate 75 92 H 97 H Respiratory Rate 16 Blood Pressure 144/80 H Pulse Oximetry 94 L 07/16/18 10:03 07/16/18 10:43 07/16/18 11:00 Temperature Pulse Rate 82 89 Respiratory Rate 18 Blood Pressure Pulse Oximetry 93 L 93 L 07/16/18 12:00 07/16/18 13:00 07/16/18 14:00 Temperature 98.0 F Pulse Rate 90 99 H 78 Respiratory Rate 16 Blood Pressure 135/79 Pulse Oximetry 96 07/16/18 15:00 07/16/18 15:06 Temperature Pulse Rate 91 H 71 Respiratory Rate 18 Blood Pressure Pulse Oximetry 95 Intake & Output 07/15/18 07/16/18 07/16/18 18:59 06:59 18:59 Intake Total 1210 / 1210 590 / 590 250 / 250 Output Total 1500 / 1500 1750 / 1750 Balance -290 / -290 -1160 / -1160 250 / 250 Weight 63.5 kg Intake: IV 250 / 250 350 / 350 250 / 250 Heparin/D5W 25,000 U/250 mL 25, 250 / 250 250 / 250 000 unit In 250 ml @ 1,200 UNITS/HR 12 mls/hr IV.CONT TITRATE PRN Rx#:[id number] Azithromycin Inj 500 MG In NS 250 / 250 Inj 250 ML @ 250 mls/hr IV.SIG Q24H [facility] Rx#:[id number] Rocephin Inj 1,000 MG In NS Inj 100 / 100 100 ML @ 200 mls/hr IV.SIG Q24H [facility] Rx#:[id number] Oral 960 / 960 240 / 240 Output: Urine 1500 / 1500 Urine Amount (Catheter) 1750 / 1750 Straight 1750 / 1750 Other: Date of Last Bowel Movement 07/14/18 07/16/18 # Bowel Movements 0 Narrative: Irregular heart rhythm, regular heart rate Clear lungs bilaterally anteriorly, unlabored breathing Awake and alert Urine appears almost black but liquid, no clots evident in Eastman catheter. - Urinary Catheter Management Straight Cath placed during this visit: no Results - Labs CBC & Chem 7: 07/15/18 05:38 07/16/18 13:47 Laboratory Results - last 24 hr 07/15/18 07/15/18 07/15/18 05:38 05:38 17:23 Smear Path Review APTT Sodium Potassium Chloride Carbon Dioxide Anion Gap BUN Creatinine Estimated GFR POC Glucose 110 Random Glucose Calcium Iron 47 L TIBC 340 % Saturation 13.8 L Ferritin 56 Vitamin B12 582 Folate Greater than 20.0 H 07/15/18 07/16/18 07/16/18 20:49 05:21 08:01 Smear Path Review APTT 60.6 H Sodium Potassium Chloride Carbon Dioxide Anion Gap BUN Creatinine Estimated GFR POC Glucose 121 H 120 H Random Glucose Calcium Iron TIBC % Saturation Ferritin Vitamin B12 Folate 07/16/18 07/16/18 12:19 13:47 Smear Path Review APTT Sodium 143 Potassium 3.2 L Chloride 103 Carbon Dioxide 32.7 H Anion Gap 7 BUN 55 H Creatinine 1.77 H Estimated GFR 37 L POC Glucose 173 H Random Glucose 191 H Calcium 8.4 L D Iron TIBC % Saturation Ferritin Vitamin B12 Folate - Imaging Impressions Abdomen Ultrasound 07/16/18 00:00 CONCLUSION: 1. There is a small amount of ascites within the abdomen. 2. Bilateral pleural effusions. 3. Heterogeneous echotexture of the liver without ductal dilation or focal mass. 4. Enlarged, echogenic kidneys bilaterally suggesting underlying medical renal disease. There is mild cortical thinning bilaterally. 5. 3 cm area of enlargement of the infrarenal abdominal aorta. Assessment and Plan - Plan Mr. Ward is an 87-year-old male with a history of AAA, atrial fibrillation on Xarelto, type 2 diabetes mellitus, hyperlipidemia, hypertension, and peripheral arterial disease who presented to the emergency room in [place] on 07/13/2018 complaining of progressively worsening shortness of breath. He was found to have left lower lobe pulmonary embolism, bilateral pleural effusions and bibasilar consolidation, and right middle lobe and lingula infiltrate on imaging and was transferred to [facility] under the hospitalist service for further evaluation and management. ACUTE ISSUES Pulmonary embolism, left lower lobe -Heparin drip -Negative lower extremity ultrasound -Appreciate hematology input, patient leaning towards Eliquis option given that he may not eat consistently timed meals. Will attempt to run dummy script in pharmacy. Bilateral pleural effusions Likely from congestive heart failure given bilateral nature, unable to drain due to being on anticoagulation unfortunately, likely will remain as residual since the patient is already on Lasix Troponin I elevation Chronic sCHF Chronic aortic bulge -cards suspect hrt strain from CHF and PE. Deferring ACS at this time. - downgrading from iv to oral lasix - 3 cm infrarenal aortic bulge, stable JOSE Likely secondary to diuresis and heart failure, - hold home losartan possible PNA -Continue Rocephin and azithromycin, pro calcitonin is elevated Urinary retention Likely secondary to BPH maintain catheter for now, continue bladder scans intermittently, continue home Flomax, starting finasteride CHRONIC Dizziness -Patient may benefit from brain MRI/neurological evaluation as an outpatient Type 2 Diabetes Mellitus - Accu-Cheks before meals and at bedtime with low-dose NovoLog sliding scale coverage Hypothyroidism - home Synthroid Hypertension -home meds as above Hyperlipidemia -home simvastatin BPH - home Flomax DVT prophylaxis -On heparin drip for now Discharge Planning: SNF likely
[2018-07-16 16:06] LABS: Amorphous Sediment,Urine Moderate /hpf; Bacteria,Urine Moderate /hpf; Bilirubin,Urine Negative (Negative); Clarity,Urine Hazy (Clear); Glucose,Urine (UA) Negative (Negative); Leukocyte Esterase,Urine Negative (Negative); Nitrite,Urine Negative (Negative); Squamous Epithelial Cell,Urine 3 /hpf (0-5)
[2018-07-16 16:07] LABS: Color,Urine Brown (Yellw/Straw)
[2018-07-16] MEDS: Finasteride 5 MG Tablet PO SCH (17:33)
--- NOTE | 2018-07-16 17:37 | P.PNONC ---
Subjective Interval history: Sitting in bed Eating dinner Objective Vital Signs/Intake & Output: Vital Signs 07/15/18 18:00 07/15/18 19:00 07/15/18 20:00 Temperature 97.9 F Pulse Rate 84 84 82 Respiratory Rate 16 Blood Pressure 146/97 H Pulse Oximetry 96 07/15/18 20:55 07/15/18 21:00 07/15/18 22:00 Temperature Pulse Rate 78 86 96 H Respiratory Rate 16 Blood Pressure Pulse Oximetry 93 L 07/15/18 23:00 07/16/18 00:00 07/16/18 01:00 Temperature 97.9 F Pulse Rate 83 83 85 Respiratory Rate 16 Blood Pressure 150/65 H Pulse Oximetry 96 07/16/18 02:00 07/16/18 03:00 07/16/18 04:00 Temperature 98 F Pulse Rate 93 H 85 88 Respiratory Rate 16 Blood Pressure 148/83 H Pulse Oximetry 93 L 07/16/18 05:00 07/16/18 06:00 07/16/18 07:00 Temperature Pulse Rate 87 85 75 Respiratory Rate Blood Pressure Pulse Oximetry 07/16/18 08:00 07/16/18 09:00 07/16/18 10:00 Temperature 75 F L Pulse Rate 75 92 H 97 H Respiratory Rate 16 Blood Pressure 144/80 H Pulse Oximetry 94 L 07/16/18 10:03 07/16/18 10:43 07/16/18 11:00 Temperature Pulse Rate 82 89 Respiratory Rate 18 Blood Pressure Pulse Oximetry 93 L 93 L 07/16/18 12:00 07/16/18 13:00 07/16/18 14:00 Temperature 98.0 F Pulse Rate 90 99 H 78 Respiratory Rate 16 Blood Pressure 135/79 Pulse Oximetry 96 07/16/18 15:00 07/16/18 15:06 07/16/18 16:00 Temperature 97.9 F Pulse Rate 91 H 71 61 Respiratory Rate 18 18 Blood Pressure 148/81 H Pulse Oximetry 95 99 07/16/18 17:00 Temperature Pulse Rate 78 Respiratory Rate Blood Pressure Pulse Oximetry Intake & Output 07/15/18 07/16/18 07/16/18 18:59 06:59 18:59 Intake Total 1210 / 1210 590 / 590 250 / 250 Output Total 1500 / 1500 1750 / 1750 Balance -290 / -290 -1160 / -1160 250 / 250 Weight 63.5 kg Intake: IV 250 / 250 350 / 350 250 / 250 Heparin/D5W 25,000 U/250 mL 25, 250 / 250 250 / 250 000 unit In 250 ml @ 1,200 UNITS/HR 12 mls/hr IV.CONT TITRATE PRN Rx#:[id number] Azithromycin Inj 500 MG In NS 250 / 250 Inj 250 ML @ 250 mls/hr IV.SIG Q24H ONUR Rx#:[id number] Rocephin Inj 1,000 MG In NS Inj 100 / 100 100 ML @ 200 mls/hr IV.SIG Q24H ONUR Rx#:[id number] Oral 960 / 960 240 / 240 Output: Urine 1500 / 1500 Urine Amount (Catheter) 1750 / 1750 Straight 1750 / 1750 Other: Date of Last Bowel Movement 07/14/18 07/16/18 # Bowel Movements 0 Result Diagrams: 07/15/18 05:38 07/16/18 13:47 Laboratory Results: Laboratory Results - last 24 hr 07/15/18 07/15/18 07/15/18 05:38 05:38 17:23 Smear Path Review APTT Sodium Potassium Chloride Carbon Dioxide Anion Gap BUN Creatinine Estimated GFR POC Glucose 110 Random Glucose Calcium Iron 47 L TIBC 340 % Saturation 13.8 L Ferritin 56 Vitamin B12 582 Folate Greater than 20.0 H Urine Color Urine Clarity Urine pH Ur Specific [place] Urine Protein Urine Glucose (UA) Urine Ketones Urine Occult Blood Urine Nitrate Urine Bilirubin Urine Urobilinogen Ur Leukocyte Esterase Urine RBC Urine WBC Ur Squamous Epith Cells Amorphous Sediment Urine Bacteria Micro UA Comment Ur Microscopic Review Urine Culture Comments 07/15/18 07/16/18 07/16/18 20:49 05:21 08:01 Smear Path Review APTT 60.6 H Sodium Potassium Chloride Carbon Dioxide Anion Gap BUN Creatinine Estimated GFR POC Glucose 121 H 120 H Random Glucose Calcium Iron TIBC % Saturation Ferritin Vitamin B12 Folate Urine Color Urine Clarity Urine pH Ur Specific [place] Urine Protein Urine Glucose (UA) Urine Ketones Urine Occult Blood Urine Nitrate Urine Bilirubin Urine Urobilinogen Ur Leukocyte Esterase Urine RBC Urine WBC Ur Squamous Epith Cells Amorphous Sediment Urine Bacteria Micro UA Comment Ur Microscopic Review Urine Culture Comments 07/16/18 07/16/18 07/16/18 12:19 13:47 15:00 Smear Path Review APTT Sodium 143 Potassium 3.2 L Chloride 103 Carbon Dioxide 32.7 H Anion Gap 7 BUN 55 H Creatinine 1.77 H Estimated GFR 37 L POC Glucose 173 H Random Glucose 191 H Calcium 8.4 L D Iron TIBC % Saturation Ferritin Vitamin B12 Folate Urine Color Brown H Urine Clarity Hazy H Urine pH 6.0 Ur Specific [place] 1.010 Urine Protein 100 H Urine Glucose (UA) Negative Urine Ketones Negative Urine Occult Blood Moderate H Urine Nitrate Negative Urine Bilirubin Negative Urine Urobilinogen Less than 2 Ur Leukocyte Esterase Negative Urine RBC Urine WBC 90 H Ur Squamous Epith Cells 3 Amorphous Sediment Moderate H Urine Bacteria Moderate H Micro UA Comment Cath-culture ind Ur Microscopic Review Not Reportable Urine Culture Comments Cath-cult indicated 07/16/18 17:06 Smear Path Review APTT Sodium Potassium Chloride Carbon Dioxide Anion Gap BUN Creatinine Estimated GFR POC Glucose 128 H Random Glucose Calcium Iron TIBC % Saturation Ferritin Vitamin B12 Folate Urine Color Urine Clarity Urine pH Ur Specific [place] Urine Protein Urine Glucose (UA) Urine Ketones Urine Occult Blood Urine Nitrate Urine Bilirubin Urine Urobilinogen Ur Leukocyte Esterase Urine RBC Urine WBC Ur Squamous Epith Cells Amorphous Sediment Urine Bacteria Micro UA Comment Ur Microscopic Review Urine Culture Comments Culture Results: Microbiology 07/14/18 15:40 Stool Occult Blood (LIZ) - Final Stool Hemoccult negative Imaging Studies: Impressions Abdomen Ultrasound 07/16/18 00:00 CONCLUSION: 1. There is a small amount of ascites within the abdomen. 2. Bilateral pleural effusions. 3. Heterogeneous echotexture of the liver without ductal dilation or focal mass. 4. Enlarged, echogenic kidneys bilaterally suggesting underlying medical renal disease. There is mild cortical thinning bilaterally. 5. 3 cm area of enlargement of the infrarenal abdominal aorta. Medications: Active Medications Generic Name Dose Route Start Last Admin Trade Name Freq PRN Reason Stop Dose Admin Albuterol 1 ampul 07/14/18 04:00 07/16/18 15:04 Duoneb Neb (Onur) NEB 1 ampul Q6HR NEB ONUR Administration Atenolol 25 mg 07/14/18 09:00 07/16/18 09:37 Tenormin PO 25 mg DAILY ONUR Administration Furosemide 40 mg 07/14/18 09:00 07/16/18 09:27 Lasix Inj IV.PUSH 40 mg BID@0900,1800 ONUR Administration Heparin Sodium/Dextrose 25,000 unit in 250 mls @ 12 mls/hr 07/13/18 22:31 14:03 Heparin/D5w 25,000 U/250 Ml IV.CONT 1,200 units/hr TITRATE PRN 12 mls/hr Per Protocol Administration Protocol 1,200 UNITS/HR Azithromycin 500 mg/ Sodium 250 mls @ 250 mls/hr 07/13/18 23:00 07/16/18 00: 53 Chloride IV.SIG Infused Q24H ONUR Infusion Ceftriaxone Sodium 1,000 mg/ 100 mls @ 200 mls/hr 07/13/18 23:00 07/15/18 23: 58 Sodium Chloride IV.SIG Infused Q24H ONUR Infusion Insulin Aspart 0 unit 07/14/18 08:00 07/16/18 13:52 Novolog Insulin Correctional Sugar Inj SQ Not Given ACHS [facility] Protocol Levothyroxine Sodium 50 mcg 07/14/18 06:00 07/16/18 05:32 Synthroid PO 50 mcg DAILY@0600 ONUR Administration Losartan Potassium 50 mg 07/14/18 09:00 07/15/18 08:14 Cozaar PO 50 mg DAILY ONUR Administration Potassium Chloride 10 meq 07/14/18 09:00 07/16/18 09:25 Klor-Con 10 PO 10 meq BID ONUR Administration Pravastatin Sodium 40 mg 07/14/18 21:00 07/15/18 21:11 Pravachol PO 40 mg HS ONUR Administration Prochlorperazine Edisylate 5 mg 07/15/18 00:48 07/15/18 01:40 Compazine Inj IV.PUSH 5 mg Q4H PRN Administration NAUSEA OR VOMITING Sodium Chloride 2 ml 07/14/18 09:00 07/16/18 09:28 Ns Flush IV.FLUSH 2 ml BID ONUR Administration Tamsulosin HCl 0.4 mg 07/14/18 09:00 07/16/18 09:26 Flomax PO 0.4 mg DAILY ONUR Administration Objective Remarks: GENERAL: thin, elderly man, non distress SKIN: Warm and dry. HEAD: Normocephalic. EYES: No scleral icterus. No injection or drainage. LYMPHATIC: No adenopathy. RESPIRATORY: No accessory muscle use. GASTROINTESTINAL:thin abdomen, soft, nontder EXTREMITIES: no edema MUSCULOSKELETAL: Adequate muscle tone. NEUROLOGICAL: No obvious focal deficit. Awake, alert, and oriented x3. PSYCHIATRIC: Appropriate mood and affect; insight and judgment normal. Assessment/Plan - Plan 1. Pulmonary embolism, unprovoked in an elderly patient. He will need to be on indefinite anticoagulation. Upon questioning he did not reliably take Xarelto at the same time every day with up to a 4 hour window where he would be without anticoagulation. Discussed options for anticoagulation with patient to include rivaroxaban, apixaban, warfarin. Bettina reports that he has been on warfarin in the past with difficult to control INR due to dietary restrictions. He currently has a creatinign clearance that has ranged from 26 to 30 while inpatient. Guidelines for xarelto recommend to avoid use in patient wiht a creatinine clearnce less cynthia n30 ml/min. Uncertain of creainine value outpatient. 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 Patient with creatinine clearnce less than 25 or creatinine greater than 2.5 were excluded from the clinical trials. Discussed risk of bleeding, including a balck box warning for spinal/epidural hematoma. 2. Atrial fibrillation: cardiology team following, on medications. 3. Anemia: ACD per iron studies. B12, folate, replete. Renal disease likely contributing 4. TCP: uncertain of baseline. No evidence of splenomegaly. Liver with normal size, coarse echotexture. Smear with TCP. Will checkflow, fibrinogen, LDH, haptoglobin.
[2018-07-16 20:31] LABS: Lactate Dehydrogenase 168 U/L (87-241)
[2018-07-16] MEDS: Azithromycin Inj 500 MG in Sodium Chlor 0.9% Inj 250 ML IV.SIG SCH (23:24)
[2018-07-17] MEDS: Levothyroxine 50 MCG Tablet PO SCH (06:13)
[2018-07-17 08:44] LABS: Carbon Dioxide 31.3 meq/L (21.0-32.0)
[2018-07-17 09:17] LABS: Potassium 2.6 meq/L (3.5-5.1)
[2018-07-17] MEDS: Finasteride 5 MG Tablet PO SCH (09:45)
[2018-07-17] MEDS: Atenolol 25 MG Tablet PO SCH (09:46)
[2018-07-17] MEDS: Insulin NovoLOG Aspart Correctional Sugar Inj SQ SCH ×4 (09:54→22:40)
[2018-07-17] MEDS: Potassium Chlor 20 mEq Premix 20 MEQ/100 ML PIGGYBACK IV.SIG SCH ×2 (10:57→13:08)
[2018-07-17] MEDS: Heparin Drip 25,000 UNIT/250 ML BAG IV.CONT PRN (11:09)
--- NOTE | 2018-07-17 11:52 | P.PN ---
Subjective Interval history: Nursing denies any deterioration since last night except for low potassium at 2.6 and some hematuria that is now present obviously. Patient himself has no new complaints. Physical Exam Vital signs: Vital Signs 07/16/18 12:00 07/16/18 13:00 07/16/18 14:00 Temperature 98.0 F Pulse Rate 90 99 H 78 Respiratory Rate 16 Blood Pressure 135/79 Pulse Oximetry 96 07/16/18 15:00 07/16/18 15:06 07/16/18 16:00 Temperature 97.9 F Pulse Rate 91 H 71 61 Respiratory Rate 18 18 Blood Pressure 148/81 H Pulse Oximetry 95 99 07/16/18 17:00 07/16/18 18:00 07/16/18 19:00 Temperature Pulse Rate 78 86 86 Respiratory Rate Blood Pressure Pulse Oximetry 07/16/18 20:00 07/16/18 20:55 07/16/18 21:00 Temperature 98.4 F Pulse Rate 80 80 74 Respiratory Rate 16 16 Blood Pressure 148/79 H Pulse Oximetry 97 07/16/18 22:00 07/16/18 23:00 07/17/18 00:00 Temperature 97.7 F Pulse Rate 77 75 82 Respiratory Rate 16 Blood Pressure 139/69 Pulse Oximetry 97 07/17/18 01:00 07/17/18 02:00 07/17/18 03:00 Temperature Pulse Rate 77 76 76 Respiratory Rate Blood Pressure Pulse Oximetry 07/17/18 03:49 07/17/18 04:00 07/17/18 05:00 Temperature 97.7 F Pulse Rate 76 80 84 Respiratory Rate 16 16 Blood Pressure 147/81 H Pulse Oximetry 95 07/17/18 06:00 07/17/18 07:00 07/17/18 07:41 Temperature 97.5 F L Pulse Rate 86 79 81 Respiratory Rate 20 Blood Pressure 146/79 H Pulse Oximetry 95 07/17/18 08:00 07/17/18 09:00 07/17/18 10:54 Temperature Pulse Rate 94 H Respiratory Rate 20 Blood Pressure Pulse Oximetry 95 93 L Intake & Output 07/16/18 07/17/18 07/17/18 18:59 06:59 18:59 Intake Total 890 / 890 590 / 590 250 / 250 Output Total 1600 / 1600 1000 / 1000 Balance -710 / -710 -410 / -410 250 / 250 Weight 61.8 kg Intake: IV 250 / 250 350 / 350 250 / 250 Heparin/D5W 25,000 U/250 mL 25, 250 / 250 250 / 250 000 unit In 250 ml @ 1,200 UNITS/HR 12 mls/hr IV.CONT TITRATE PRN Rx#:[id number] Azithromycin Inj 500 MG In NS 250 / 250 Inj 250 ML @ 250 mls/hr IV.SIG Q24H RITO Rx#:[id number] Rocephin Inj 1,000 MG In NS Inj 100 / 100 100 ML @ 200 mls/hr IV.SIG Q24H RITO Rx#:[id number] Oral 640 / 640 240 / 240 Output: Urine Amount (Catheter) 1600 / 1600 1000 / 1000 Indwelling Urethral Catheter 1000 / 1000 Straight 1600 / 1600 Other: # Voids 1 Date of Last Bowel Movement 07/16/18 07/16/18 07/16/18 # Bowel Movements 1 0 Narrative: Heart sounds regular rate rhythm, no murmurs Clear lungs bilaterally, unlabored breathing Eastman catheter in place with gross hematuria noted - Urinary Catheter Management Straight Cath placed during this visit: no Indwelling Urethral Catheter Cath placed during this visit: no Results - Labs CBC & Chem 7: 07/15/18 05:38 07/17/18 05:55 Laboratory Results - last 24 hr 07/16/18 07/16/18 07/16/18 12:19 13:47 15:00 Haptoglobin APTT Fibrinogen Sodium 143 Potassium 3.2 L Chloride 103 Carbon Dioxide 32.7 H Anion Gap 7 BUN 55 H Creatinine 1.77 H Estimated GFR 37 L POC Glucose 173 H Random Glucose 191 H Calcium 8.4 L D Magnesium Lactate Dehydrogenase Urine Color Brown H Urine Clarity Hazy H Urine pH 6.0 Ur Specific [place] 1.010 Urine Protein 100 H Urine Glucose (UA) Negative Urine Ketones Negative Urine Occult Blood Moderate H Urine Nitrate Negative Urine Bilirubin Negative Urine Urobilinogen Less than 2 Ur Leukocyte Esterase Negative Urine RBC Urine WBC 90 H Ur Squamous Epith Cells 3 Amorphous Sediment Moderate H Urine Bacteria Moderate H Micro UA Comment Cath-culture ind Ur Microscopic Review Not Reportable Urine Culture Comments Cath-cult indicated 07/16/18 07/16/18 07/16/18 17:06 19:58 19:58 Haptoglobin 161 APTT Fibrinogen 383 H Sodium Potassium Chloride Carbon Dioxide Anion Gap BUN Creatinine Estimated GFR POC Glucose 128 H Random Glucose Calcium Magnesium Lactate Dehydrogenase 168 Urine Color Urine Clarity Urine pH Ur Specific [place] Urine Protein Urine Glucose (UA) Urine Ketones Urine Occult Blood Urine Nitrate Urine Bilirubin Urine Urobilinogen Ur Leukocyte Esterase Urine RBC Urine WBC Ur Squamous Epith Cells Amorphous Sediment Urine Bacteria Micro UA Comment Ur Microscopic Review Urine Culture Comments 07/16/18 07/16/18 07/17/18 19:58 20:48 05:55 Haptoglobin APTT 59.2 H Fibrinogen Sodium Potassium Chloride Carbon Dioxide Anion Gap BUN Creatinine Estimated GFR POC Glucose 157 H Random Glucose Calcium Magnesium 1.9 Lactate Dehydrogenase Urine Color Urine Clarity Urine pH Ur Specific [place] Urine Protein Urine Glucose (UA) Urine Ketones Urine Occult Blood Urine Nitrate Urine Bilirubin Urine Urobilinogen Ur Leukocyte Esterase Urine RBC Urine WBC Ur Squamous Epith Cells Amorphous Sediment Urine Bacteria Micro UA Comment Ur Microscopic Review Urine Culture Comments 07/17/18 07/17/18 07/17/18 05:55 08:00 11:18 Haptoglobin APTT Fibrinogen Sodium 144 Potassium 2.6 L* Chloride 103 Carbon Dioxide 31.3 Anion Gap 10 BUN 45 H Creatinine 1.34 H Estimated GFR 50 L POC Glucose 94 183 H Random Glucose 82 D Calcium 8.0 L Magnesium Lactate Dehydrogenase Urine Color Urine Clarity Urine pH Ur Specific [place] Urine Protein Urine Glucose (UA) Urine Ketones Urine Occult Blood Urine Nitrate Urine Bilirubin Urine Urobilinogen Ur Leukocyte Esterase Urine RBC Urine WBC Ur Squamous Epith Cells Amorphous Sediment Urine Bacteria Micro UA Comment Ur Microscopic Review Urine Culture Comments Assessment and Plan - Plan Mr. Ward is an 87-year-old male with a history of AAA, atrial fibrillation on Xarelto, type 2 diabetes mellitus, hyperlipidemia, hypertension, and peripheral arterial disease who presented to the emergency room in [place] on 07/13/2018 complaining of progressively worsening shortness of breath. He was found to have left lower lobe pulmonary embolism, bilateral pleural effusions and bibasilar consolidation, and right middle lobe and lingula infiltrate on imaging and was transferred to [facility] under the hospitalist service for further evaluation and management. ACUTE ISSUES Pulmonary embolism, left lower lobe -Heparin drip -Appreciate hematology input, patient leaning towards Eliquis option given that he may not eat consistently timed meals. Will attempt to run dummy script in pharmacy. Awaiting for daughter to let me know if Eliquis is covered or not Bilateral pleural effusions Likely from congestive heart failure given bilateral nature, unable to drain due to being on anticoagulation unfortunately, likely will remain as residual since the patient is already on Lasix Acute hypokalemia - Mg stable, IV KCL, recheck in AM Acute Urinary retention Gross hematuria -Started Flomax and finasteride yesterday Could be secondary to traumatic Eastman insertion while being on Eliquis, but due to its persistence I will consult urology Troponin I elevation Chronic sCHF Chronic aortic bulge -cards suspect hrt strain from CHF and PE. Deferring ACS at this time. - downgrading from iv to oral lasix - 3 cm infrarenal aortic bulge, stable CKD -Acute element resolved, continue oral diuresis, resume home losartan possible PNA -Continue Rocephin and azithromycin, pro calcitonin is elevated CHRONIC Dizziness -Patient may benefit from brain MRI/neurological evaluation as an outpatient Type 2 Diabetes Mellitus - Accu-Cheks before meals and at bedtime with low-dose NovoLog sliding scale coverage Hypothyroidism - home Synthroid Hypertension -home meds as above Hyperlipidemia -home simvastatin BPH - home Flomax DVT prophylaxis -On heparin drip for now Discharge Planning: SNF once electrolytes and hematuria stabilized
--- NOTE | 2018-07-17 16:26 | MB ---
cc: Nathaniel Murphy DO DATE: 07/17/2018 DATE OF CONSULTATION: 07/17/2018 HISTORY OF PRESENT ILLNESS: Mr. Ward is a pleasant 87-year-old male who was admitted after findings of a pulmonary embolus. He also has a history of BPH and a Eastman catheter was placed due to the patient being in retention; at that time apparently 1300 mL of clear urine initially drained from the Eastman catheter and then following this, he developed gross hematuria. He notes prior to his admission he has a history of BPH and was on Flomax 1 tablet p.o. at bedtime. He denies any prior history of infections, hematuria or stone. Denies any history of prostate cancer. PAST MEDICAL HISTORY: Includes atrial fibrillation, diabetes, hyperlipidemia, hypertension, peripheral vascular disease. PAST SURGICAL HISTORY: Noted for colon resection, appendectomy and prior inguinal hernia surgery. ALLERGIES: HE HAS NO KNOWN DRUG ALLERGIES. FAMILY HISTORY: Denies family history of prostate cancer. SOCIAL HISTORY: Denies smoking, drinking or using drugs. MEDICATIONS: Please refer to the chart. REVIEW OF SYSTEMS: He denies chest pain at present denies any shortness of breath at the present. He denies abdominal pain. He does note nocturia 3-4 times. Does note lower extremity weakness with walking. Denies headaches, vision problems. The remaining review of systems were reviewed and were negative. PHYSICAL EXAMINATION: VITAL SIGNS: Temperature 97.9, heart rate 84, respiratory rate 20, 131/68 is blood pressure, 95% on room air. GENERAL: A thin 87-year-old male in no acute distress. HEENT: Normocephalic, atraumatic. Pupils equal, round, reactive to light. Extraocular movements intact. NECK: Supple. HEART: Regular rate and rhythm. LUNGS: Clear. ABDOMEN: Soft, nontender, nondistended. GENITOURINARY: Eastman is in place. EXTREMITIES: Show no cyanosis, clubbing, or edema. NEUROLOGIC: Cranial nerves II-XII are intact. LABORATORY DATA: White count of 11.2, hemoglobin 11.6, hematocrit 35.5, platelet count ____. Sodium 144, potassium 2.6, chloride 103, CO2 31.3, BUN of 45, creatinine 1.34, glucose 183. Urinalysis: 90 white cells are noted. Urine culture is negative. IMAGING: Abdominal ultrasound showed that the right kidney is somewhat enlarged with some cortical thinning noted. There is no significant hydronephrosis noted on either kidney. ASSESSMENT AND PLAN: An 87-year-old male admitted with pulmonary embolus, now on anticoagulation therapy with history of benign prostatic hyperplasia with obstruction. 1. Would double Flomax to 2 tabs 0.4 mg for a total of 0.8 mg p.o. at bedtime. 2. He is to maintain Eastman catheter for now; hematuria due to rapid bladder decompression with breakage of small vessels. Would maintain Eastman catheter and irrigate p.r.n. as needed to clear urine. Eastman was irrigated at the bedside and is now clear. Void trial once the patient is ambulating better and has regained his strength. We will follow with you. Thank you for the consult and allowing me participate in the care of this patient. DO NIXON Godinez/dalton , 03:15 PM , 03:23 PM
--- NOTE | 2018-07-17 17:48 | P.PNCA ---
Subjective Interval history: Hematuria with urinary retention Feels breathing is better overall Medications and Allergies Active Medications: Active Medications Acetaminophen (Tylenol) 650 mg PO Q4H PRN PRN Reason: Temp > 100.4 Albuterol (Duoneb Neb (Onur)) 1 ampul NEB Q6HR NEB [facility] Last Admin: 07/17/18 15:46 Dose: 1 ampul Albuterol (Duoneb Neb (Prn)) 1 ampul NEB Q4HR NEB PRN PRN Reason: SHORTNESS OF BREATH/WHEEZING Atenolol (Tenormin) 25 mg PO DAILY [facility] Last Admin: 07/17/18 09:46 Dose: 25 mg Bisacodyl (Dulcolax Supp) 10 mg RECTAL DAILY PRN PRN Reason: SEVERE CONSITIPATION Dextrose (D50w Vial) 50 ml IV.PUSH UNSCH PRN PRN Reason: PER HYPOGLYCEMIA PROTOCOL Finasteride (Proscar) 5 mg PO DAILY [facility] Last Admin: 07/17/18 09:45 Dose: 5 mg Furosemide (Lasix Inj) 40 mg IV.PUSH BID@0900,1800 [facility] Last Admin: 07/17/18 10:16 Dose: Not Given Glucagon (Glucagon Inj) 1 mg OTHER PRN PRN PRN Reason: for Hypoglycemia Protocol Heparin Sodium/Dextrose (Heparin/D5w 25,000 U/250 Ml) 25,000 unit in 250 mls @ 12 mls/hr IV.CONT TITRATE PRN; Protocol PRN Reason: Per Protocol Last Admin: 07/17/18 11:09 Dose: 1,200 units/hr, 12 mls/hr Azithromycin 500 mg/ Sodium (Chloride) 250 mls @ 250 mls/hr IV.SIG Q24H [facility] Last Infusion: 07/17/18 01:35 Dose: Infused Ceftriaxone Sodium 1,000 mg/ (Sodium Chloride) 100 mls @ 200 mls/hr IV.SIG Q24H [facility] Last Infusion: 07/16/18 23:24 Dose: Infused Insulin Aspart (Novolog Insulin Correctional Sugar Inj) 0 unit SQ ACHS [facility]; Protocol Last Admin: 07/17/18 12:18 Dose: 1 unit Levothyroxine Sodium (Synthroid) 50 mcg PO DAILY@0600 [facility] Last Admin: 07/17/18 06:13 Dose: 50 mcg Losartan Potassium (Cozaar) 50 mg PO DAILY [facility] Last Admin: 07/15/18 08:14 Dose: 50 mg Potassium Chloride (Klor-Con 10) 10 meq PO BID [facility] Last Admin: 07/17/18 09:45 Dose: 10 meq Potassium Chloride (K-Dur) 20 meq PO BID [facility] Last Admin: 07/17/18 11:09 Dose: 20 meq Pravastatin Sodium (Pravachol) 40 mg PO HS [facility] Last Admin: 07/16/18 21:26 Dose: 40 mg Prochlorperazine Edisylate (Compazine Inj) 5 mg IV.PUSH Q4H PRN PRN Reason: NAUSEA OR VOMITING Last Admin: 07/15/18 01:40 Dose: 5 mg Sennosides (Senokot) 17.2 mg PO Q12H PRN PRN Reason: Moderate Constipation Sodium Chloride (Ns Flush) 2 ml IV.FLUSH BID [facility] Last Admin: 07/17/18 09:46 Dose: 2 ml Sodium Chloride (Ns Flush) 2 ml IV.FLUSH PRN PRN PRN Reason: FLUSH AFTER USING IV ACCESS Tamsulosin HCl (Flomax) 0.4 mg PO BID [facility] Allergies Allergy/AdvReac Type Severity Reaction Status Date / Time No Known Allergies Allergy Verified 07/13/18 17:45 Home Medications Medication Instructions Recorded Confirmed Type albuterol sulfate [Ventolin HFA] 2 puff INHALATION Q4-6H PRN 07/13/18 07/13/18 History atenolol [Tenormin] 25 mg PO DAILY 07/13/18 07/13/18 History furosemide [Lasix] 20 mg PO DAILY 07/13/18 07/13/18 History glyburide 2.5 mg PO DAILY 07/13/18 07/13/18 History levothyroxine 50 mcg PO DAILY 07/13/18 07/13/18 History losartan 50 mg PO DAILY 07/13/18 07/13/18 History metformin [Glucophage] 500 mg PO BID 07/13/18 07/13/18 History potassium chloride 10 meq PO BID 07/13/18 07/13/18 History rivaroxaban [Xarelto] 15 mg PO DAILY 07/13/18 07/13/18 History simvastatin 20 mg PO QPM 07/13/18 07/13/18 History tamsulosin [Flomax] 0.4 mg PO DAILY 07/13/18 07/13/18 History Physical Exam Vital signs: Vital Signs 07/16/18 18:00 07/16/18 19:00 07/16/18 20:00 Temperature 98.4 F Pulse Rate 86 86 80 Respiratory Rate 16 Blood Pressure 148/79 H Pulse Oximetry 97 07/16/18 20:55 07/16/18 21:00 07/16/18 22:00 Temperature Pulse Rate 80 74 77 Respiratory Rate 16 Blood Pressure Pulse Oximetry 07/16/18 23:00 07/17/18 00:00 07/17/18 01:00 Temperature 97.7 F Pulse Rate 75 82 77 Respiratory Rate 16 Blood Pressure 139/69 Pulse Oximetry 97 07/17/18 02:00 07/17/18 03:00 07/17/18 03:49 Temperature Pulse Rate 76 76 76 Respiratory Rate 16 Blood Pressure Pulse Oximetry 07/17/18 04:00 07/17/18 05:00 07/17/18 06:00 Temperature 97.7 F Pulse Rate 80 84 86 Respiratory Rate 16 Blood Pressure 147/81 H Pulse Oximetry 95 07/17/18 07:00 07/17/18 07:41 07/17/18 08:00 Temperature 97.5 F L Pulse Rate 79 81 82 Respiratory Rate 20 Blood Pressure 146/79 H Pulse Oximetry 95 95 07/17/18 09:00 07/17/18 10:00 07/17/18 10:54 Temperature Pulse Rate 82 86 Respiratory Rate 20 Blood Pressure Pulse Oximetry 93 L 07/17/18 11:00 07/17/18 12:00 07/17/18 13:00 Temperature 97.9 F Pulse Rate 83 88 87 Respiratory Rate 20 Blood Pressure 131/68 Pulse Oximetry 95 07/17/18 14:00 07/17/18 15:00 07/17/18 15:30 Temperature 97.5 F L Pulse Rate 84 68 79 Respiratory Rate 20 16 Blood Pressure 127/81 Pulse Oximetry 98 Intake & Output 07/16/18 07/17/18 07/17/18 18:59 06:59 18:59 Intake Total 890 / 890 590 / 590 450 / 450 Output Total 1600 / 1600 1000 / 1000 Balance -710 / -710 -410 / -410 450 / 450 Weight 61.8 kg Intake: IV 250 / 250 350 / 350 450 / 450 Heparin/D5W 25,000 U/250 mL 25, 250 / 250 250 / 250 000 unit In 250 ml @ 1,200 UNITS/HR 12 mls/hr IV.CONT TITRATE PRN Rx#:[id number] Azithromycin Inj 500 MG In NS 250 / 250 Inj 250 ML @ 250 mls/hr IV.SIG Q24H [facility] Rx#:[id number] KCl 20 mEq Premix Inj 20 meq In 200 / 200 100 ml @ 50 mls/hr IV.SIG Q2H [facility] Rx#:[id number] Rocephin Inj 1,000 MG In NS Inj 100 / 100 100 ML @ 200 mls/hr IV.SIG Q24H [facility] Rx#:[id number] Oral 640 / 640 240 / 240 Output: Urine Amount (Catheter) 1600 / 1600 1000 / 1000 Indwelling Urethral Catheter 1000 / 1000 Straight 1600 / 1600 Other: # Voids 1 Date of Last Bowel Movement 07/16/18 07/16/18 07/16/18 # Bowel Movements 1 0 Narrative: GENERAL: NAD, AAOx3 SKIN: Warm and dry. HEAD: Atraumatic. Normocephalic. EYES: Pupils equal and round. No scleral icterus. No injection or drainage. ENT: No nasal bleeding or discharge. Mucous membranes pink and moist. NECK: Trachea midline. No JVD. CARDIOVASCULAR: Regular rate and rhythm. RESPIRATORY: No accessory muscle use. Clear to auscultation. Breath sounds equal bilaterally. GASTROINTESTINAL: Abdomen soft, non-tender, nondistended. Hepatic and splenic margins not palpable. MUSCULOSKELETAL: Extremities without clubbing, cyanosis, or edema. No obvious deformities. NEUROLOGICAL: Awake and alert. No obvious cranial nerve deficits. Motor grossly within normal limits. Five out of 5 muscle strength in the arms and legs. Normal speech. PSYCHIATRIC: Appropriate mood and affect; insight and judgment normal. - Urinary Catheter Management Straight Cath placed during this visit: no Indwelling Urethral Catheter Cath placed during this visit: no Results 07/15/18 05:38 07/17/18 05:55 Cardiac Enzymes 07/16/18 Range/Units 19:58 Lactate Dehydrogenase 168 (87-241) U/L Coagulation 07/16/18 07/17/18 Range/Units 05:21 05:55 APTT 60.6 H 59.2 H (24.3-30.1) sec Comprehensive Metabolic Panel 09/25/18 09/26/18 Range/Units 13:47 05:55 Sodium 143 144 (136-145) meq/L Potassium 3.2 L 2.6 L* (3.5-5.1) meq/L Chloride 103 103 (98-107) meq/L Carbon Dioxide 32.7 H 31.3 (21.0-32.0) meq/L BUN 55 H 45 H (7-18) mg/dL Creatinine 1.77 H 1.34 H (0.60-1.30) mg/dL Calcium 8.4 L D 8.0 L (8.5-10.1) mg/dL Intake and Output 07/17/18 07/17/18 07/17/18 06:59 14:59 22:59 Intake Total 590 / 590 350 / 350 100 / 100 Output Total 1000 / 1000 Balance -410 / -410 350 / 350 100 / 100 Intake: IV 350 / 350 350 / 350 100 / 100 Heparin/D5W 25,000 U/250 mL 25, 250 / 250 000 unit In 250 ml @ 1,200 UNITS/HR 12 mls/hr IV.CONT TITRATE PRN Rx#:[id number] Azithromycin Inj 500 MG In NS 250 / 250 Inj 250 ML @ 250 mls/hr IV.SIG Q24H [facility] Rx#:[id number] KCl 20 mEq Premix Inj 20 meq In 100 / 100 100 / 100 100 ml @ 50 mls/hr IV.SIG Q2H [facility] Rx#:[id number] Rocephin Inj 1,000 MG In NS Inj 100 / 100 100 ML @ 200 mls/hr IV.SIG Q24H [facility] Rx#:[id number] Oral 240 / 240 Output: Urine Amount (Catheter) 1000 / 1000 Indwelling Urethral Catheter 1000 / 1000 Other: Date of Last Bowel Movement 07/16/18 07/16/18 # Bowel Movements 0 Weight 61.8 kg - Imaging and Cardiology Imaging: Impressions Abdomen Ultrasound 07/16/18 00:00 CONCLUSION: 1. There is a small amount of ascites within the abdomen. 2. Bilateral pleural effusions. 3. Heterogeneous echotexture of the liver without ductal dilation or focal mass. 4. Enlarged, echogenic kidneys bilaterally suggesting underlying medical renal disease. There is mild cortical thinning bilaterally. 5. 3 cm area of enlargement of the infrarenal abdominal aorta. Assessment and Plan - Assessment (1) Pulmonary embolism Code(s): I26.99 - Other pulmonary embolism without acute cor pulmonale Status : Acute (2) CHF (congestive heart failure) Code(s): I50.9 - Heart failure, unspecified Status: Acute (3) SOB (shortness of breath) Code(s): R06.02 - Shortness of breath Status: Acute (4) Afib Code(s): I48.91 - Unspecified atrial fibrillation Status: Acute - Plan 1) Acute pulmonary embolism Currently on Xarelto Considering change to Eliquis due to PE on Xarelto and not needing to eat at the same time every day to take it 2) Acute systolic heart failure Bilateral pleural effusions Con't diuresis Unsure if new diagnosis Previous stress nuclear within the past year negative Discussed work up consideration But due to PE, will hold off for now Will follow up outpatient for further considerations 3) Afib Rates controlled Xarelto for now
[2018-07-17] MEDS: Azithromycin Inj 500 MG in Sodium Chlor 0.9% Inj 250 ML IV.SIG SCH (22:15)
[2018-07-18] MEDS: Levothyroxine 50 MCG Tablet PO SCH (06:45)
[2018-07-18] MEDS: Atenolol 25 MG Tablet PO SCH (09:09)
[2018-07-18] MEDS: Insulin NovoLOG Aspart Correctional Sugar Inj SQ SCH ×4 (09:19→21:24)
[2018-07-18] MEDS: Finasteride 5 MG Tablet PO SCH (09:19)
[2018-07-18 10:15] LABS: Calcium 8.2 mg/dL (8.5-10.1); Carbon Dioxide 30.2 meq/L (21.0-32.0); Potassium 3.5 meq/L (3.5-5.1)
--- NOTE | 2018-07-18 13:36 | P.PNURO ---
Subjective Patient symptoms today: Pt seen and examined. Objective Vital Signs: Vital Signs 07/17/18 14:00 07/17/18 15:00 07/17/18 15:30 Temperature 97.5 F L Pulse Rate 84 81 79 Respiratory Rate 20 16 Blood Pressure 127/81 Pulse Oximetry 98 07/17/18 16:00 07/17/18 17:00 07/17/18 18:00 Temperature Pulse Rate 78 82 88 Respiratory Rate Blood Pressure Pulse Oximetry 07/17/18 20:00 07/17/18 21:00 07/17/18 21:42 Temperature 97.5 F L Pulse Rate 80 76 71 Respiratory Rate 20 18 Blood Pressure 119/69 Pulse Oximetry 93 L 95 07/17/18 22:00 07/17/18 23:00 07/18/18 00:00 Temperature 97.5 F L Pulse Rate 80 86 80 Respiratory Rate 20 Blood Pressure 119/69 Pulse Oximetry 97 07/18/18 01:00 07/18/18 02:00 07/18/18 04:00 Temperature 97.8 F Pulse Rate 80 82 78 Respiratory Rate 18 Blood Pressure 104/70 Pulse Oximetry 96 07/18/18 05:00 07/18/18 07:00 07/18/18 08:00 Temperature 98.2 F Pulse Rate 82 80 88 Respiratory Rate 18 Blood Pressure 135/85 Pulse Oximetry 98 07/18/18 09:00 07/18/18 10:00 Temperature Pulse Rate 92 H 80 Respiratory Rate Blood Pressure Pulse Oximetry Intake & Output 07/17/18 07/18/18 07/18/18 18:59 06:59 18:59 Intake Total 1530 / 1530 350 / 350 Output Total 900 / 900 Balance 630 / 630 350 / 350 Weight 62.4 kg Intake: IV 450 / 450 350 / 350 Heparin/D5W 25,000 U/250 mL 25, 250 / 250 000 unit In 250 ml @ 1,200 UNITS/HR 12 mls/hr IV.CONT TITRATE PRN Rx#:[id number] Azithromycin Inj 500 MG In NS 250 / 250 Inj 250 ML @ 250 mls/hr IV.SIG Q24H [facility] Rx#:[id number] KCl 20 mEq Premix Inj 20 meq In 200 / 200 100 ml @ 50 mls/hr IV.SIG Q2H [facility] Rx#:[id number] Rocephin Inj 1,000 MG In NS Inj 100 / 100 100 ML @ 200 mls/hr IV.SIG Q24H [facility] Rx#:[id number] Tube Feeding 1080 / 1080 Output: Urine Amount (Catheter) 900 / 900 Indwelling Urethral Catheter 900 / 900 Other: Date of Last Bowel Movement 07/16/18 07/16/18 07/16/18 Result Diagrams: 07/15/18 05:38 07/18/18 09:31 Medications and IVs: Active Medications Generic Name Dose Route Start Last Admin Trade Name Freq PRN Reason Stop Dose Admin Acetaminophen 650 mg 07/13/18 22:22 Tylenol PO Q4H PRN Temp > 100.4 Albuterol 1 ampul 07/13/18 22:47 Duoneb Neb (Prn) NEB Q4HR NEB PRN SHORTNESS OF BREATH/WHEEZING Atenolol 25 mg 07/14/18 09:00 07/18/18 09:09 Tenormin PO 25 mg DAILY [facility] Administration Bisacodyl 10 mg 07/13/18 22:22 Dulcolax Supp RECTAL DAILY PRN SEVERE CONSITIPATION Dextrose 50 ml 07/13/18 23:12 D50w Vial IV.PUSH UNSCH PRN PER HYPOGLYCEMIA PROTOCOL Finasteride 5 mg 07/16/18 17:00 07/18/18 09:19 Proscar PO 5 mg DAILY [facility] Administration Furosemide 40 mg 07/14/18 09:00 07/18/18 09:09 Lasix Inj IV.PUSH 40 mg BID@0900,1800 [facility] Administration Glucagon 1 mg 07/13/18 23:12 Glucagon Inj OTHER PRN PRN for Hypoglycemia Protocol Heparin Sodium/Dextrose 25,000 unit in 250 mls @ 12 mls/hr 07/13/18 22:31 11:09 Heparin/D5w 25,000 U/250 Ml IV.CONT 1,200 units/hr TITRATE PRN 12 mls/hr Per Protocol Administration Protocol 1,200 UNITS/HR Azithromycin 500 mg/ Sodium 250 mls @ 250 mls/hr 07/13/18 23:00 07/17/18 23: 15 Chloride IV.SIG Infused Q24H [facility] Infusion Ceftriaxone Sodium 1,000 mg/ 100 mls @ 200 mls/hr 07/13/18 23:00 07/17/18 22: 48 Sodium Chloride IV.SIG Infused Q24H [facility] Infusion Insulin Aspart 0 unit 07/14/18 08:00 07/18/18 13:15 Novolog Insulin Correctional Sugar Inj SQ 3 unit ACHS [facility] Administration Protocol Levothyroxine Sodium 50 mcg 07/14/18 06:00 07/18/18 06:45 Synthroid PO 50 mcg DAILY@0600 [facility] Administration Losartan Potassium 50 mg 07/14/18 09:00 07/15/18 08:14 Cozaar PO 50 mg DAILY [facility] Administration Potassium Chloride 10 meq 07/14/18 09:00 07/18/18 09:09 Klor-Con 10 PO 10 meq BID [facility] Administration Potassium Chloride 20 meq 07/17/18 10:00 07/18/18 09:08 K-Dur PO 20 meq BID [facility] Administration Pravastatin Sodium 40 mg 07/14/18 21:00 07/17/18 22:17 Pravachol PO 40 mg HS [facility] Administration Prochlorperazine Edisylate 5 mg 07/15/18 00:48 07/15/18 01:40 Compazine Inj IV.PUSH 5 mg Q4H PRN Administration NAUSEA OR VOMITING Sennosides 17.2 mg 07/13/18 22:22 Senokot PO Q12H PRN Moderate Constipation Sodium Chloride 2 ml 07/14/18 09:00 07/18/18 09:19 Ns Flush IV.FLUSH 2 ml BID [facility] Administration Sodium Chloride 2 ml 07/13/18 22:47 Ns Flush IV.FLUSH PRN PRN FLUSH AFTER USING IV ACCESS Tamsulosin HCl 0.4 mg 07/17/18 21:00 07/18/18 09:19 Flomax PO 0.4 mg BID [facility] Administration Objective Remarks: Abd:soft,nt,nd Eastman with clear urine. Assessment and Plan - Plan 87 y.o male with urinary retention secondary to BPH with hematuria Hematuria has resolved Continue Flomax 0.4mg BID Void trial next week in office if pt goes home tomorrow.
--- NOTE | 2018-07-18 15:31 | P.DS ---
Date of admission: 07/13/18 22:56 Primary care physician: shiva Box Brief History from admission: Mr. Ward is an 87-year-old male with a history of AAA, atrial fibrillation on Xarelto, type 2 diabetes mellitus, hyperlipidemia, hypertension, and peripheral arterial disease who presented to the emergency room in [place] on 07/13/2018 complaining of progressively worsening shortness of breath. He was found to have left lower lobe pulmonary embolism, bilateral pleural effusions and bibasilar consolidation, and right middle lobe and lingula infiltrate on imaging and was transferred to [facility] under the hospitalist service for further evaluation and management. The patient is seen in his hospital room. He is awake, alert, oriented, conversant, and smiling. He states that he has been having problems with shortness of breath over the past month. He received treatment through his primary care physician with oral steroids and an inhaler. He says symptoms improved with the steroids and he never needed the inhaler. However, 2 days ago he began to experience shortness of breath again. He states his symptoms were worse when he attempted to lie down and were relieved initially with the inhaler he had received the previous month. Because of the difficulty he was having breathing during the night, he decided to go to the emergency room today. He also reports having dizziness over the past year for which he attends physical therapy for balance. He states the dizziness was never worked up with any imaging but has resulted in him using a cane for ambulation at times. He denies having any chest pain, shortness of breath, or unilateral weakness. He denies any recent fever or chills. DS: Medications - Discharge Medications Prescriptions: azithromycin 250 mg PO DAILY #2 tab cefdinir 600 mg PO DAILY #5 cap furosemide 40 mg PO DAILY #30 tab potassium chloride 20 meq PO TID #90 tab rivaroxaban [Xarelto] See Label Instructions .ROUTE .COMPLEX #30 tab tamsulosin 0.4 mg PO BID #60 cap tamsulosin [Flomax] 0.8 mg PO HS #60 cap DS: Summary Hospital Course: Patient was admitted, started on heparin drip for PE and antibiotics for pneumonia. He was also started on diuretics for pleural effusions for acute systolic CHF. Cardiology followed the patient, concluded he did not need inpatient ACS workup at the time. Patient was found to have bilateral pleural effusions but was unable to have them drain due to being on Xarelto. Troponins trend plateaued at 0.32 and was concluded to be secondary to heart failure. Hematology evaluated the patient as well and concluded that his venous thromboembolism while being on Xarelto is likely due to taking Xarelto sporadically instead of consistently at the same time every day with an evening meal. Patient and daughter were extensively counseled on the importance of sticking to Xarelto at the same time and were also given the option of switching over to Eliquis twice daily so that he would not have to consistently maintain dinner at the same time every day (for taking Xarelto close). Since patient was concluded to being discharged to a fpc facility he was amenable to staying on Xarelto while at the nursing facility, and then consider being transitioned over to apixaban (Eliquis) under the care of his primary care provider or hematology later on. Urology also evaluated the patient for acute urinary retention with gross hematuria. His hematuria resolved and he was instructed to maintain his Anderson catheter with a voiding trial in 1 week in urology's office. Patient has met maximal benefit from hospitalization is clinically stable for discharge. - Time Spent with Patient Total time spent providing and/or coordinating discharge services: Less than 30 minutes - Quality: VTE Deep Vein Thrombosis/Pulmonary Embolism Present on Admission: Yes Exam Vital signs: Vital Signs 07/17/18 15:30 07/17/18 16:00 07/17/18 17:00 Temperature 97.5 F L Pulse Rate 79 78 82 Respiratory Rate 16 Blood Pressure 127/81 Pulse Oximetry 98 07/17/18 18:00 07/17/18 20:00 07/17/18 21:00 Temperature 97.5 F L Pulse Rate 88 80 76 Respiratory Rate 20 Blood Pressure 119/69 Pulse Oximetry 93 L 07/17/18 21:42 07/17/18 22:00 07/17/18 23:00 Temperature Pulse Rate 71 80 86 Respiratory Rate 18 Blood Pressure Pulse Oximetry 95 07/18/18 00:00 07/18/18 01:00 07/18/18 02:00 Temperature 97.5 F L Pulse Rate 80 80 82 Respiratory Rate 20 Blood Pressure 119/69 Pulse Oximetry 97 07/18/18 04:00 07/18/18 05:00 07/18/18 07:00 Temperature 97.8 F Pulse Rate 78 82 80 Respiratory Rate 18 Blood Pressure 104/70 Pulse Oximetry 96 07/18/18 08:00 07/18/18 09:00 07/18/18 10:00 Temperature 98.2 F Pulse Rate 88 92 H 80 Respiratory Rate 18 Blood Pressure 135/85 Pulse Oximetry 98 07/18/18 11:00 07/18/18 12:00 07/18/18 13:00 Temperature 97.6 F Pulse Rate 68 68 69 Respiratory Rate 18 Blood Pressure 131/80 Pulse Oximetry 96 Intake & Output 07/17/18 07/18/18 07/18/18 18:59 06:59 18:59 Intake Total 1530 / 1530 350 / 350 Output Total 900 / 900 Balance 630 / 630 350 / 350 Weight 62.4 kg Intake: IV 450 / 450 350 / 350 Heparin/D5W 25,000 U/250 mL 25, 250 / 250 000 unit In 250 ml @ 1,200 UNITS/HR 12 mls/hr IV.CONT TITRATE PRN Rx#:[id number] Azithromycin Inj 500 MG In NS 250 / 250 Inj 250 ML @ 250 mls/hr IV.SIG Q24H [facility] Rx#:[id number] KCl 20 mEq Premix Inj 20 meq In 200 / 200 100 ml @ 50 mls/hr IV.SIG Q2H [facility] Rx#:[id number] Rocephin Inj 1,000 MG In NS Inj 100 / 100 100 ML @ 200 mls/hr IV.SIG Q24H [facility] Rx#:[id number] Tube Feeding 1080 / 1080 Output: Urine Amount (Catheter) 900 / 900 Indwelling Urethral Catheter 900 / 900 Other: Date of Last Bowel Movement 07/16/18 07/16/18 07/18/18 Narrative: Clear lungs bilaterally anteriorly Heart sounds irregular rhythm, regular rate No acute distress Anderson catheter in place, no gross blood noted Results Procedures completed during hospitalization: anderson catheter placed Labs on day of discharge: Labs from last 24 hours 07/18/18 07/18/18 07/18/18 11:43 09:31 07:34 APTT Sodium 137 Potassium 3.5 D Chloride 99 Carbon Dioxide 30.2 Anion Gap 8 BUN 40 H Creatinine 1.36 H Estimated GFR 50 L POC Glucose 227 H 158 H Random Glucose 276 H D Calcium 8.2 L Immunophenotypic Anal 07/18/18 07/17/18 07/17/18 06:14 22:25 17:31 APTT 41.0 H D Sodium Potassium Chloride Carbon Dioxide Anion Gap BUN Creatinine Estimated GFR POC Glucose 207 H 221 H Random Glucose Calcium Immunophenotypic Anal 07/16/18 19:58 APTT Sodium Potassium Chloride Carbon Dioxide Anion Gap BUN Creatinine Estimated GFR POC Glucose Random Glucose Calcium Immunophenotypic Anal - Impressions ITS Impressions Venous Doppler Study 07/14/18 00:00 CONCLUSION: 1. Negative for deep venous thrombosis 2. 3 cm popliteal cyst the left. Abdomen Ultrasound 07/16/18 00:00 CONCLUSION: 1. There is a small amount of ascites within the abdomen. 2. Bilateral pleural effusions. 3. Heterogeneous echotexture of the liver without ductal dilation or focal mass. 4. Enlarged, echogenic kidneys bilaterally suggesting underlying medical renal disease. There is mild cortical thinning bilaterally. 5. 3 cm area of enlargement of the infrarenal abdominal aorta. Discharge Plan - Discharge Disposition Patient Disposition: 03 Discharge to SNF - Discharge Condition Condition: Stable - Discharge Order Discharge Orders: Discharge Order (Routine); Ordered 07/18/18 Ordered By: Iron Arcos - Discharge Details Discharge Comment: Keep catheter in. To have voiding trial with urology in 1 week. - Physicians Team Attending Provider: Iron Arcos Other Providers: Neno Latham DO ; Madeline Mayorga ; Nathaniel Murphy DO - Rxs /Orders / Referrals /Forms Prescriptions: New azithromycin 250 mg Tablet 250 mg PO DAILY Qty: 2 RF: 0 cefdinir 300 mg Capsule 600 mg PO DAILY Qty: 5 RF: 0 furosemide 40 mg Tablet 40 mg PO DAILY Qty: 30 RF: 0 potassium chloride 20 mEq Tablet,Er Particles/Crystals 20 meq PO TID Qty: 90 RF: 0 tamsulosin 0.4 mg Capsule 0.4 mg PO BID Qty: 60 RF: 0 Continue albuterol sulfate [Ventolin HFA] 90 mcg/actuation Hfa Aerosol Inhaler 2 puff INHALATION Q4-6H PRN (Reason: Shortness Of Breath Or Wheezing) atenolol [Tenormin] 25 mg Tablet 25 mg PO DAILY glyburide 2.5 mg Tablet 2.5 mg PO DAILY levothyroxine 50 mcg Capsule 50 mcg PO DAILY losartan 50 mg Tablet 50 mg PO DAILY metformin [Glucophage] 500 mg Tablet 500 mg PO BID simvastatin 40 mg Tablet 20 mg PO QPM Changed rivaroxaban [Xarelto] 15 mg Tablet See Label Instructions .ROUTE .COMPLEX Qty: 30 RF: 0 Changed from: 15 mg oral daily tamsulosin [Flomax] 0.4 mg Capsule,Extended Release 24hr 0.8 mg PO HS Qty: 60 Changed from: 0.4 mg oral daily Discontinued furosemide [Lasix] 20 mg Tablet 20 mg PO DAILY potassium chloride 10 mEq Tablet Extended Release 10 meq PO BID Referrals: shiva Box [Other] - See Instructions Sander Doherty MD [Physician] - See Instructions Neno Latham DO [Physician] - See Instructions - Discharge Instructions Additional Instructions: Patient is to take Xarelto (rivaroxaban) with same timed evening meal consistently daily. May be switched over to Eliquis under discretion of PCP or hematology in the future if he or patient's family desires. To have voiding trial with urology in 1 week.
[2018-07-18] MEDS: Heparin Drip 25,000 UNIT/250 ML BAG IV.CONT PRN (16:50)
--- NOTE | 2018-07-18 18:33 | P.PNONC ---
Subjective Interval history: Resting comfortably in bed in no distress Eating dinner Discharge to rehab planned for tomorrow. Objective Vital Signs/Intake & Output: Vital Signs 07/17/18 20:00 07/17/18 21:00 07/17/18 21:42 Temperature 97.5 F L Pulse Rate 80 76 71 Respiratory Rate 20 18 Blood Pressure 119/69 Pulse Oximetry 93 L 95 07/17/18 22:00 07/17/18 23:00 07/18/18 00:00 Temperature 97.5 F L Pulse Rate 80 86 80 Respiratory Rate 20 Blood Pressure 119/69 Pulse Oximetry 97 07/18/18 01:00 07/18/18 02:00 07/18/18 04:00 Temperature 97.8 F Pulse Rate 80 82 78 Respiratory Rate 18 Blood Pressure 104/70 Pulse Oximetry 96 07/18/18 05:00 07/18/18 07:00 07/18/18 08:00 Temperature 98.2 F Pulse Rate 82 80 88 Respiratory Rate 18 Blood Pressure 135/85 Pulse Oximetry 98 07/18/18 09:00 07/18/18 10:00 07/18/18 11:00 Temperature Pulse Rate 92 H 80 68 Respiratory Rate Blood Pressure Pulse Oximetry 07/18/18 12:00 07/18/18 13:00 07/18/18 16:00 Temperature 97.6 F 97.6 F Pulse Rate 68 69 67 Respiratory Rate 18 18 Blood Pressure 131/80 138/83 Pulse Oximetry 96 97 Intake & Output 07/17/18 07/18/18 07/18/18 18:59 06:59 18:59 Intake Total 1530 / 1530 350 / 350 250 / 250 Output Total 900 / 900 Balance 630 / 630 350 / 350 250 / 250 Weight 62.4 kg Intake: IV 450 / 450 350 / 350 250 / 250 Heparin/D5W 25,000 U/250 mL 25, 250 / 250 250 / 250 000 unit In 250 ml @ 1,200 UNITS/HR 12 mls/hr IV.CONT TITRATE PRN Rx#:[id number] Azithromycin Inj 500 MG In NS 250 / 250 Inj 250 ML @ 250 mls/hr IV.SIG Q24H [facility] Rx#:[id number] KCl 20 mEq Premix Inj 20 meq In 200 / 200 100 ml @ 50 mls/hr IV.SIG Q2H RITO Rx#:[id number] Rocephin Inj 1,000 MG In NS Inj 100 / 100 100 ML @ 200 mls/hr IV.SIG Q24H RITO Rx#:[id number] Tube Feeding 1080 / 1080 Output: Urine Amount (Catheter) 900 / 900 Indwelling Urethral Catheter 900 / 900 Other: Date of Last Bowel Movement 07/16/18 07/16/18 07/18/18 Result Diagrams: 07/15/18 05:38 07/18/18 09:31 Laboratory Results: Laboratory Results - last 24 hr 07/16/18 07/17/18 07/18/18 19:58 22:25 06:14 APTT 41.0 H D Sodium Potassium Chloride Carbon Dioxide Anion Gap BUN Creatinine Estimated GFR POC Glucose 207 H Random Glucose Calcium Immunophenotypic Anal 07/18/18 07/18/18 07/18/18 07:34 09:31 11:43 APTT Sodium 137 Potassium 3.5 D Chloride 99 Carbon Dioxide 30.2 Anion Gap 8 BUN 40 H Creatinine 1.36 H Estimated GFR 50 L POC Glucose 158 H 227 H Random Glucose 276 H D Calcium 8.2 L Immunophenotypic Anal 07/18/18 16:55 APTT Sodium Potassium Chloride Carbon Dioxide Anion Gap BUN Creatinine Estimated GFR POC Glucose 158 H Random Glucose Calcium Immunophenotypic Anal Culture Results: Microbiology 07/16/18 15:00 Urine Culture - Final Catheterized Urine No growth in 48 hours Medications: Active Medications Generic Name Dose Route Start Last Admin Trade Name Freq PRN Reason Stop Dose Admin Atenolol 25 mg 07/14/18 09:00 07/18/18 09:09 Tenormin PO 25 mg DAILY RITO Administration Finasteride 5 mg 07/16/18 17:00 07/18/18 09:19 Proscar PO 5 mg DAILY RITO Administration Furosemide 40 mg 07/14/18 09:00 07/18/18 17:43 Lasix Inj IV.PUSH 40 mg BID@0900,1800 RITO Administration Heparin Sodium/Dextrose 25,000 unit in 250 mls @ 12 mls/hr 07/13/18 22:31 16:50 Heparin/D5w 25,000 U/250 Ml IV.CONT 1,200 units/hr TITRATE PRN 12 mls/hr Per Protocol Administration Protocol 1,200 UNITS/HR Azithromycin 500 mg/ Sodium 250 mls @ 250 mls/hr 07/13/18 23:00 07/17/18 23: 15 Chloride IV.SIG Infused Q24H RITO Infusion Ceftriaxone Sodium 1,000 mg/ 100 mls @ 200 mls/hr 07/13/18 23:00 07/17/18 22: 48 Sodium Chloride IV.SIG Infused Q24H RITO Infusion Insulin Aspart 0 unit 07/14/18 08:00 07/18/18 17:43 Novolog Insulin Correctional Sugar Inj SQ 1 unit ACHS R[facility]O Administration Protocol Levothyroxine Sodium 50 mcg 07/14/18 06:00 07/18/18 06:45 Synthroid PO 50 mcg DAILY@0600 R[facility]O Administration Losartan Potassium 50 mg 07/14/18 09:00 07/15/18 08:14 Cozaar PO 50 mg DAILY RITO Administration Potassium Chloride 10 meq 07/14/18 09:00 07/18/18 09:09 Klor-Con 10 PO 10 meq BID RITO Administration Potassium Chloride 20 meq 07/17/18 10:00 07/18/18 09:08 K-Dur PO 20 meq BID RITO Administration Pravastatin Sodium 40 mg 07/14/18 21:00 07/17/18 22:17 Pravachol PO 40 mg HS RITO Administration Prochlorperazine Edisylate 5 mg 07/15/18 00:48 07/15/18 01:40 Compazine Inj IV.PUSH 5 mg Q4H PRN Administration NAUSEA OR VOMITING Sodium Chloride 2 ml 07/14/18 09:00 07/18/18 09:19 Ns Flush IV.FLUSH 2 ml BID RITO Administration Tamsulosin HCl 0.4 mg 07/17/18 21:00 07/18/18 09:19 Flomax PO 0.4 mg BID RITO Administration Objective Remarks: GENERAL: thin, elderly man SKIN: Warm and dry. HEAD: Normocephalic. EYES: No scleral icterus. No injection or drainage. RESPIRATORY: No accessory muscle use. EXTREMITIES: No cyanosis, or edema. MUSCULOSKELETAL: Adequate muscle tone. NEUROLOGICAL: No obvious focal deficit. Awake, alert, and oriented x3. Assessment/Plan - Plan 1. Pulmonary embolism, unprovoked in an elderly patient. He will need to be on indefinite anticoagulation. Upon questioning he did not reliably take Xarelto at the same time every day with up to a 4 hour window where he would be without anticoagulation. Creatinine clearance greater than 30. He will take Xarelto at the same time every day. 2. Atrial fibrillation: cardiology team following, on medications. 3. Anemia: ACD per iron studies. B12, folate, replete. Renal disease likely contributing 4. TCP: uncertain of baseline. No evidence of splenomegaly. Liver with normal size, coarse echotexture. Smear with TCP. No evidence of TTP, ITP, DIC. Stable value.
--- NOTE | 2018-07-19 00:34 | P.PNCA ---
Subjective Interval history: No events overnight Hematuria resolved Medications and Allergies Active Medications: Active Medications Acetaminophen (Tylenol) 650 mg PO Q4H PRN PRN Reason: Temp > 100.4 Albuterol (Duoneb Neb (Prn)) 1 ampul NEB Q4HR NEB PRN PRN Reason: SHORTNESS OF BREATH/WHEEZING Atenolol (Tenormin) 25 mg PO DAILY [facility] Last Admin: 07/18/18 09:09 Dose: 25 mg Bisacodyl (Dulcolax Supp) 10 mg RECTAL DAILY PRN PRN Reason: SEVERE CONSITIPATION Dextrose (D50w Vial) 50 ml IV.PUSH UNSCH PRN PRN Reason: PER HYPOGLYCEMIA PROTOCOL Finasteride (Proscar) 5 mg PO DAILY [facility] Last Admin: 07/18/18 09:19 Dose: 5 mg Furosemide (Lasix Inj) 40 mg IV.PUSH BID@0900,1800 [facility] Last Admin: 07/18/18 17:43 Dose: 40 mg Glucagon (Glucagon Inj) 1 mg OTHER PRN PRN PRN Reason: for Hypoglycemia Protocol Heparin Sodium/Dextrose (Heparin/D5w 25,000 U/250 Ml) 25,000 unit in 250 mls @ 12 mls/hr IV.CONT TITRATE PRN; Protocol PRN Reason: Per Protocol Last Admin: 07/18/18 16:50 Dose: 1,200 units/hr, 12 mls/hr Azithromycin 500 mg/ Sodium (Chloride) 250 mls @ 250 mls/hr IV.SIG Q24H [facility] Last Infusion: 07/17/18 23:15 Dose: Infused Ceftriaxone Sodium 1,000 mg/ (Sodium Chloride) 100 mls @ 200 mls/hr IV.SIG Q24H [facility] Last Admin: 07/19/18 00:19 Dose: 100 mls/hr Insulin Aspart (Novolog Insulin Correctional Sugar Inj) 0 unit SQ ACHS [facility]; Protocol Last Admin: 07/18/18 21:24 Dose: 1 unit Levothyroxine Sodium (Synthroid) 50 mcg PO DAILY@0600 [facility] Last Admin: 07/18/18 06:45 Dose: 50 mcg Losartan Potassium (Cozaar) 50 mg PO DAILY [facility] Last Admin: 07/15/18 08:14 Dose: 50 mg Potassium Chloride (Klor-Con 10) 10 meq PO BID [facility] Last Admin: 07/18/18 21:17 Dose: 10 meq Potassium Chloride (K-Dur) 20 meq PO BID [facility] Last Admin: 07/18/18 21:17 Dose: 20 meq Pravastatin Sodium (Pravachol) 40 mg PO HS [facility] Last Admin: 07/18/18 21:17 Dose: 40 mg Prochlorperazine Edisylate (Compazine Inj) 5 mg IV.PUSH Q4H PRN PRN Reason: NAUSEA OR VOMITING Last Admin: 07/15/18 01:40 Dose: 5 mg Sennosides (Senokot) 17.2 mg PO Q12H PRN PRN Reason: Moderate Constipation Sodium Chloride (Ns Flush) 2 ml IV.FLUSH BID [facility] Last Admin: 07/18/18 21:17 Dose: 2 ml Sodium Chloride (Ns Flush) 2 ml IV.FLUSH PRN PRN PRN Reason: FLUSH AFTER USING IV ACCESS Tamsulosin HCl (Flomax) 0.4 mg PO BID [facility] Last Admin: 07/18/18 21:17 Dose: 0.4 mg Allergies Allergy/AdvReac Type Severity Reaction Status Date / Time No Known Allergies Allergy Verified 07/13/18 17:45 Home Medications Medication Instructions Recorded Confirmed Type albuterol sulfate [Ventolin HFA] 2 puff INHALATION Q4-6H PRN 07/13/18 07/13/18 History atenolol [Tenormin] 25 mg PO DAILY 07/13/18 07/13/18 History furosemide [Lasix] 20 mg PO DAILY 07/13/18 07/13/18 History glyburide 2.5 mg PO DAILY 07/13/18 07/13/18 History levothyroxine 50 mcg PO DAILY 07/13/18 07/13/18 History losartan 50 mg PO DAILY 07/13/18 07/13/18 History metformin [Glucophage] 500 mg PO BID 07/13/18 07/13/18 History potassium chloride 10 meq PO BID 07/13/18 07/13/18 History simvastatin 20 mg PO QPM 07/13/18 07/13/18 History Physical Exam Vital signs: Vital Signs 07/18/18 01:00 07/18/18 02:00 07/18/18 04:00 Temperature 97.8 F Pulse Rate 80 82 78 Respiratory Rate 18 Blood Pressure 104/70 Pulse Oximetry 96 07/18/18 05:00 07/18/18 07:00 07/18/18 08:00 Temperature 98.2 F Pulse Rate 82 80 88 Respiratory Rate 18 Blood Pressure 135/85 Pulse Oximetry 98 07/18/18 09:00 07/18/18 10:00 07/18/18 11:00 Temperature Pulse Rate 92 H 80 68 Respiratory Rate Blood Pressure Pulse Oximetry 07/18/18 12:00 07/18/18 13:00 07/18/18 14:00 Temperature 97.6 F Pulse Rate 68 69 70 Respiratory Rate 18 Blood Pressure 131/80 Pulse Oximetry 96 07/18/18 15:00 07/18/18 16:00 07/18/18 17:00 Temperature 97.6 F Pulse Rate 71 64 66 Respiratory Rate 18 Blood Pressure 138/83 Pulse Oximetry 97 07/18/18 18:00 07/18/18 19:00 07/18/18 20:00 Temperature 98.0 F Pulse Rate 80 70 70 Respiratory Rate 18 Blood Pressure 132/72 Pulse Oximetry 97 07/18/18 21:00 07/18/18 22:00 07/18/18 23:00 Temperature Pulse Rate 70 68 72 Respiratory Rate Blood Pressure Pulse Oximetry 07/19/18 00:00 Temperature 98.5 F Pulse Rate 72 Respiratory Rate 18 Blood Pressure 150/75 H Pulse Oximetry 96 Intake & Output 07/18/18 07/18/18 07/19/18 06:59 18:59 06:59 Intake Total 350 / 350 1430 / 1430 Output Total 1500 / 1500 Balance 350 / 350 -70 / -70 Weight 62.4 kg Intake: IV 350 / 350 250 / 250 Heparin/D5W 25,000 U/250 mL 25, 250 / 250 000 unit In 250 ml @ 1,200 UNITS/HR 12 mls/hr IV.CONT TITRATE PRN Rx#:[id number] Azithromycin Inj 500 MG In NS 250 / 250 Inj 250 ML @ 250 mls/hr IV.SIG Q24H [facility]O Rx#:[id number] Rocephin Inj 1,000 MG In NS Inj 100 / 100 100 ML @ 200 mls/hr IV.SIG Q24H [facility]O Rx#:[id number] Oral 1180 / 1180 Output: Urine Amount (Catheter) 1500 / 1500 Indwelling Urethral Catheter 1500 / 1500 Other: Date of Last Bowel Movement 07/16/18 07/18/18 07/18/18 Narrative: GENERAL: NAD, AAOx3 SKIN: Warm and dry. HEAD: Atraumatic. Normocephalic. EYES: Pupils equal and round. No scleral icterus. No injection or drainage. ENT: No nasal bleeding or discharge. Mucous membranes pink and moist. NECK: Trachea midline. No JVD. CARDIOVASCULAR: Regular rate and rhythm. RESPIRATORY: No accessory muscle use. Clear to auscultation. Breath sounds equal bilaterally. GASTROINTESTINAL: Abdomen soft, non-tender, nondistended. Hepatic and splenic margins not palpable. MUSCULOSKELETAL: Extremities without clubbing, cyanosis, or edema. No obvious deformities. NEUROLOGICAL: Awake and alert. No obvious cranial nerve deficits. Motor grossly within normal limits. Five out of 5 muscle strength in the arms and legs. Normal speech. PSYCHIATRIC: Appropriate mood and affect; insight and judgment normal. - Urinary Catheter Management Straight Cath placed during this visit: no Indwelling Urethral Catheter Cath placed during this visit: no Results 07/15/18 05:38 07/18/18 09:31 Coagulation 07/17/18 07/18/18 Range/Units 05:55 06:14 APTT 59.2 H 41.0 H D (24.3-30.1) sec Comprehensive Metabolic Panel 07/17/18 07/18/18 Range/Units 05:55 09:31 Sodium 144 137 (136-145) meq/L Potassium 2.6 L* 3.5 D (3.5-5.1) meq/L Chloride 103 99 (98-107) meq/L Carbon Dioxide 31.3 30.2 (21.0-32.0) meq/L BUN 45 H 40 H (7-18) mg/dL Creatinine 1.34 H 1.36 H (0.60-1.30) mg/dL Calcium 8.0 L 8.2 L (8.5-10.1) mg/dL Intake and Output 07/18/18 07/18/18 07/19/18 14:59 22:59 06:59 Intake Total 250 / 250 1180 / 1180 Output Total 1500 / 1500 Balance 250 / 250 -320 / -320 Intake: IV 250 / 250 Heparin/D5W 25,000 U/250 mL 25, 250 / 250 000 unit In 250 ml @ 1,200 UNITS/HR 12 mls/hr IV.CONT TITRATE PRN Rx#:[id number] Oral 1180 / 1180 Output: Urine Amount (Catheter) 1500 / 1500 Indwelling Urethral Catheter 1500 / 1500 Other: Date of Last Bowel Movement 07/18/18 07/18/18 Assessment and Plan - Assessment (1) Pulmonary embolism Code(s): I26.99 - Other pulmonary embolism without acute cor pulmonale Status : Acute (2) CHF (congestive heart failure) Code(s): I50.9 - Heart failure, unspecified Status: Acute (3) SOB (shortness of breath) Code(s): R06.02 - Shortness of breath Status: Acute (4) Afib Code(s): I48.91 - Unspecified atrial fibrillation Status: Acute - Plan 1) Acute pulmonary embolism, unprovoked Currently on Xarelto Per Hematology, indefinite anti-coagulation 2) Acute systolic heart failure Bilateral pleural effusions Con't diuresis Unsure if new diagnosis Previous stress nuclear within the past year negative Discussed work up consideration But due to PE, will hold off for now Will follow up outpatient for further considerations 3) Afib Rates controlled Xarelto 4) Agree with rehab when possible
[2018-07-19] MEDS: Azithromycin Inj 500 MG in Sodium Chlor 0.9% Inj 250 ML IV.SIG SCH (01:00)
[2018-07-19] MEDS: Levothyroxine 50 MCG Tablet PO SCH (07:12)
[2018-07-19] MEDS: Insulin NovoLOG Aspart Correctional Sugar Inj SQ SCH ×2 (07:43→11:54)
[2018-07-19] MEDS: Finasteride 5 MG Tablet PO SCH (08:17)
[2018-07-19] MEDS: Atenolol 25 MG Tablet PO SCH (08:17)
--- NOTE | 2018-07-19 08:55 | P.PNURO ---
Subjective Patient symptoms today: Pt seen and examined. Urine is clear. Objective Vital Signs: Vital Signs 07/18/18 09:00 07/18/18 10:00 07/18/18 11:00 Temperature Pulse Rate 92 H 80 68 Respiratory Rate Blood Pressure Pulse Oximetry 07/18/18 12:00 07/18/18 13:00 07/18/18 14:00 Temperature 97.6 F Pulse Rate 68 69 70 Respiratory Rate 18 Blood Pressure 131/80 Pulse Oximetry 96 07/18/18 15:00 07/18/18 16:00 07/18/18 17:00 Temperature 97.6 F Pulse Rate 71 64 66 Respiratory Rate 18 Blood Pressure 138/83 Pulse Oximetry 97 07/18/18 18:00 07/18/18 19:00 07/18/18 20:00 Temperature 98.0 F Pulse Rate 80 70 70 Respiratory Rate 18 Blood Pressure 132/72 Pulse Oximetry 97 07/18/18 21:00 07/18/18 22:00 07/18/18 22:35 Temperature Pulse Rate 70 68 Respiratory Rate Blood Pressure Pulse Oximetry 97 07/18/18 23:00 07/19/18 00:00 07/19/18 01:00 Temperature 98.5 F Pulse Rate 72 71 74 Respiratory Rate 18 Blood Pressure 150/75 H Pulse Oximetry 96 07/19/18 02:00 07/19/18 03:00 07/19/18 04:00 Temperature 98.4 F Pulse Rate 80 72 68 Respiratory Rate 18 Blood Pressure 133/86 Pulse Oximetry 07/19/18 05:00 07/19/18 06:00 07/19/18 07:00 Temperature Pulse Rate 68 76 67 Respiratory Rate Blood Pressure Pulse Oximetry 07/19/18 08:00 Temperature Pulse Rate 75 Respiratory Rate Blood Pressure Pulse Oximetry Intake & Output 07/18/18 07/19/18 07/19/18 18:59 06:59 18:59 Intake Total 1430 / 1430 590 / 590 Output Total 1500 / 1500 1350 / 1350 Balance -70 / -70 -760 / -760 Weight 62 kg Intake: IV 250 / 250 350 / 350 Heparin/D5W 25,000 U/250 mL 25, 250 / 250 000 unit In 250 ml @ 1,200 UNITS/HR 12 mls/hr IV.CONT TITRATE PRN Rx#:[id number] Azithromycin Inj 500 MG In NS 250 / 250 Inj 250 ML @ 250 mls/hr IV.SIG Q24H [facility]O Rx#:[id number] Rocephin Inj 1,000 MG In NS Inj 100 / 100 100 ML @ 200 mls/hr IV.SIG Q24H [facility] Rx#:[id number] Oral 1180 / 1180 240 / 240 Output: Urine 1350 / 1350 Urine Amount (Catheter) 1500 / 1500 Indwelling Urethral Catheter 1500 / 1500 Other: Date of Last Bowel Movement 07/18/18 07/18/18 Result Diagrams: 07/15/18 05:38 07/18/18 09:31 Medications and IVs: Active Medications Generic Name Dose Route Start Last Admin Trade Name Freq PRN Reason Stop Dose Admin Acetaminophen 650 mg 07/13/18 22:22 Tylenol PO Q4H PRN Temp > 100.4 Albuterol 1 ampul 07/13/18 22:47 Duoneb Neb (Prn) NEB Q4HR NEB PRN SHORTNESS OF BREATH/WHEEZING Atenolol 25 mg 07/14/18 09:00 07/19/18 08:17 Tenormin PO 25 mg DAILY RITO Administration Bisacodyl 10 mg 07/13/18 22:22 Dulcolax Supp RECTAL DAILY PRN SEVERE CONSITIPATION Dextrose 50 ml 07/13/18 23:12 D50w Vial IV.PUSH UNSCH PRN PER HYPOGLYCEMIA PROTOCOL Finasteride 5 mg 07/16/18 17:00 07/19/18 08:17 Proscar PO 5 mg DAILY [facility]O Administration Furosemide 40 mg 07/14/18 09:00 07/19/18 08:17 Lasix Inj IV.PUSH 40 mg BID@0900,1800 [facility]O Administration Glucagon 1 mg 07/13/18 23:12 Glucagon Inj OTHER PRN PRN for Hypoglycemia Protocol Heparin Sodium/Dextrose 25,000 unit in 250 mls @ 12 mls/hr 07/13/18 22:31 16:50 Heparin/D5w 25,000 U/250 Ml IV.CONT 1,200 units/hr TITRATE PRN 12 mls/hr Per Protocol Administration Protocol 1,200 UNITS/HR Azithromycin 500 mg/ Sodium 250 mls @ 250 mls/hr 07/13/18 23:00 07/19/18 02: 13 Chloride IV.SIG Infused Q24H [facility]O Infusion Ceftriaxone Sodium 1,000 mg/ 100 mls @ 200 mls/hr 07/13/18 23:00 07/19/18 03: 14 Sodium Chloride IV.SIG Infused Q24H [facility]O Infusion Insulin Aspart 0 unit 07/14/18 08:00 07/19/18 07:43 Novolog Insulin Correctional Sugar Inj SQ Not Given ACHS [facility] Protocol Levothyroxine Sodium 50 mcg 07/14/18 06:00 07/19/18 07:12 Synthroid PO 50 mcg DAILY@0600 [facility]O Administration Losartan Potassium 50 mg 07/14/18 09:00 07/15/18 08:14 Cozaar PO 50 mg DAILY [facility] Administration Potassium Chloride 10 meq 07/14/18 09:00 07/19/18 08:17 Klor-Con 10 PO 10 meq BID [facility]O Administration Potassium Chloride 20 meq 07/17/18 10:00 07/19/18 08:17 K-Dur PO 20 meq BID [facility]O Administration Pravastatin Sodium 40 mg 07/14/18 21:00 07/18/18 21:17 Pravachol PO 40 mg HS [facility]O Administration Prochlorperazine Edisylate 5 mg 07/15/18 00:48 07/15/18 01:40 Compazine Inj IV.PUSH 5 mg Q4H PRN Administration NAUSEA OR VOMITING Sennosides 17.2 mg 07/13/18 22:22 Senokot PO Q12H PRN Moderate Constipation Sodium Chloride 2 ml 07/14/18 09:00 07/19/18 08:17 Ns Flush IV.FLUSH 2 ml BID [facility]O Administration Sodium Chloride 2 ml 07/13/18 22:47 Ns Flush IV.FLUSH PRN PRN FLUSH AFTER USING IV ACCESS Tamsulosin HCl 0.4 mg 07/17/18 21:00 07/19/18 08:17 Flomax PO 0.4 mg BID RITO Administration Objective Remarks: Abd:soft,nt,nd [place] with clear urine. 07/19 Abd:soft,nt,nd [place] with clear urine. Assessment and Plan - Plan 87 y.o male with urinary retention secondary to BPH with hematuria Hematuria has resolved Continue Flomax 0.4mg BID Void trial next week in office if pt goes home tomorrow. 07/19 87 y.o male with AUR due to BPH Hematuria has resolved. Continue Flomax 0.4mg BID Void trial next Sunday at Rehab center.
[2018-07-19 08:57] VITALS: RESP 16
[2018-07-19] MEDS ORDERED: Rivaroxaban 15 MG Tablet PO SCH ×2 (09:45→21:00)
[2018-07-19] MEDS ORDERED: Enoxaparin Inj 60 MG/0.6 ML Syringe SQ SCH (11:00)
[2018-07-19 12:09] VITALS: BP 138/63; TEMP 97.9; O2SAT 97
[2018-07-19] MEDS ORDERED: Enoxaparin Inj 60 MG/0.6 ML Syringe SQ ONE (12:30)
[2018-07-19 14:33] VITALS: PULSE 78
== END 2018-07-19 16:23 ==
LOC: NEDDLT 17:31 → HCIS 22:56
PROVIDERS: ADMIT Hospitalist; ATTEND Hospitalist